=== PATIENT | female | born 1955 | race Caucasian/White ===

== ENCOUNTER 2017-10-22 11:45 | Outpatient (CLI) | payer OTHER | END 2017-10-22 11:46 | disposition home or self-care (01) | LOC: FCC-LAB 11:45 | PROVIDERS: ATTEND Family Medicine | DX: E03.9 Hypothyroidism, unspecified (principal) | CPT/HCPCS: 36415; 84439; 84443 ==

== ENCOUNTER 2017-12-23 16:04 | Outpatient (CLI) | END 2017-12-23 16:05 | disposition home or self-care (01) | LOC: FCC-LAB 16:04 | PROVIDERS: ATTEND Family Medicine | DX: M10.9 Gout, unspecified (principal) | CPT/HCPCS: 36415; 80053; 84550 ==

== ENCOUNTER 2018-04-06 13:14 | Outpatient (CLI) | END 2018-04-06 13:15 | disposition home or self-care (01) | LOC: RHC-LAB 13:14 | PROVIDERS: ATTEND Family Medicine | DX: E79.0 Hyperuricemia without signs of inflammatory arthritis and tophaceous disease (principal); E03.9 Hypothyroidism, unspecified; E11.9 Type 2 diabetes mellitus without complications; E78.5 Hyperlipidemia, unspecified | CPT/HCPCS: 36415; 80053; 80061; 82043; 83037; 84443; 84550 ==

== ENCOUNTER 2018-04-15 12:12 | Outpatient (CLI) | END 2018-04-15 12:13 | disposition home or self-care (01) | LOC: FCC-LAB 12:12 | PROVIDERS: ATTEND Family Medicine | DX: E11.9 Type 2 diabetes mellitus without complications (principal) | CPT/HCPCS: 36415; 83037 ==

== ENCOUNTER 2022-07-17 14:58 | Inpatient (IN) ==
--- NOTE | 2022-07-17 15:01 | ED.PDOC ---
General ED Provider: Dr. NANO PONCE MD Chief Complaint: Respiratory Complaint Stated Complaint: Patient presents with fever, nonproductive cough, right sided chest pain, dyspnea and body aches that had onset 12 hours ago. She has also had several episodes of nausea and emesis. Time Seen by Provider: 07/17/22 15:00 Primary Care Provider: DIOR CARRENO MD Nursing and Triage Documentation Reviewed and Agree: Yes Does patient meet sepsis criteria?: No System Inflammatory Response Syndrome: Temp 101F or Greater and Pulse >90 BPM Sepsis Protocol: For patient's 13 years and over: Temp is 96.8 and below OR 101 and greater Pulse >90 BPM Resp >20/minute Acutely Altered Mental Status Are patient's symptoms suggestive of a new infection, such as: -Pneumonia -Skin, Soft Tissue -Endocarditis -UTI -Bone, Joint Infection -Implantable Device -Acute Abdominal Infection -Wound Infection -Meningitis -Blood Stream Catheter Infection -Unknown Review of Systems Review Of Systems Constitutional: Reports Chills, Fever and Malaise Eyes: Reports No symptoms Ears, Nose, Mouth, Throat: Reports No symptoms Respiratory: Reports Cough and Short of air Cardiac: Reports No symptoms GI: Reports Nausea and Vomiting : Reports No symptoms Musculoskeletal: Reports Muscle pain Skin: Reports No symptoms Neurological: Reports No symptoms Endocrine: Reports No symptoms Hematologic/Lymphatic: Reports No symptoms All Other Systems: Reviewed and Negative [facility] Medical History Anxiety Asthma Carpal tunnel syndrome on both sides Chronic lower back pain Depression Esophageal spasm (03/04/16) Gastroesophageal reflux disease Hyperlipidemia Hypertension Hypothyroidism Irritable bowel syndrome (06/23/17) Lupus (systemic lupus erythematosus) Medicare annual wellness visit, subsequent (03/11/17) Melanoma Non-insulin dependent type 2 diabetes mellitus (03/04/16) Pernicious anemia (03/04/16) Rotator cuff arthropathy of right shoulder SCC (squamous cell carcinoma) (11/04/17) Shingles Skin cancer Suicide attempt Family History Mother Anemia Autoimmune disorder FATHER RA (rheumatoid arthritis) Maternal gr father Cancer of unknown origin Social History Smoking and tobacco status: Never smoker Second hand smoke exposure: No Alcohol intake: never Substance use type: does not use Freida/church: [employer] Special freida needs: No Agree to transfusion: Yes Adopted: No Caregiver/support person: No Foster care: No Household members: spouse Housing: house Lives independently: Yes Daycare: no daycare Number of children: 1 Number of grandchildren: 4 Highest education level completed: Associate degree: academic program Financial difficulty paying for basics: not very hard service: No skilled nursing: No Current occupational status: disabled Current occupational exposures/hazards: No Pets and animals: Yes Leisure activites: art History of recent travel: Yes Do you think of yourself as: straight/heterosexual Current gender identity: female Seatbelt use: always Helmet use: No Drives intoxicated or rides with intoxicated front end loader driver: No Water heater temperature set < 120 degrees: Yes Working smoke detector in home: Yes Fire extinguisher in home: Yes Carbon monoxide detector in home: Yes Firearms in home: Yes Firearms unloaded and locked: Yes Surgical History (05/30/17) (03/04/16) (04/19/18) (04/03/17) Colonoscopic polypectomy (05/30/17) H/O melanoma excision History of breast biopsy History of section History of musculoskeletal system surgery History of orthopedic surgery History of spinal surgery History of tubal ligation Status post cholecystectomy Status post hysterectomy Female Reproductive History Menstrual Hx Hysterectomy: Yes Hx Tubal Ligation: Yes Physical Exam Physical Exam Appearance: Reports Ill-appearing, No pain distress, Well-nourished and Other (Patient alert, oriented and in NAD. No respiratory distress.) Ill-appearing: Moderate Pain Distress: None Eyes: Reports Not Examined ENT: Reports Nose normal and Oropharynx normal Neck: Supple Respiratory: Reports Airway patent, Breath sounds clear and Breath sounds equal Cardiovascular: Reports RRR, No rub and No murmur GI/: Reports Soft, Nontender, No masses and Bowel sounds normal Musculoskeletal: Reports Normal strength, ROM intact and No edema Skin: Reports Warm and Dry Neurological: Reports Motor intact, Alert and Oriented Psychiatric: Reports Affect appropriate and Mood appropriate Interpretation Radiology Interpretation Radiology Interpretation By: Radiologist Exam Interpreted: Portable CXR (RLL infiltrate compatible with pneumonia) Re-Evaluation Re-Evaluation Time of Re-Evaluation: 16:26 Status: Unchanged Vital Signs Stable: Yes (oxygen sat 92-93% on RA) Appearance: NAD Physician Notification Case Discussed Physician Notified: Dr Carreno Time of Notification: 16:28 Comments: Patient to be admitted for IV antibiotic therapy and pulmonary therapy. Critical Care Note Critical Care Note Total Critical Care Time (mins): 0 Course Course Hematology/Chemistry: 07/17/22 15:38 07/17/22 15:38 Orders, Labs, Meds: Lab Review 07/17/22 07/17/22 07/17/22 15:38 15:38 15:38 WBC 21.75 H RBC 4.47 Hgb 13.5 Hct 41.3 MCV 92.4 MCH 30.2 MCHC 32.7 RDW Coeff of Niki 12.4 Plt Count 210 Immature Gran % (Auto) 0.5 Neut % (Auto) 82.2 H Lymph % (Auto) 7.4 L [place] % (Auto) 8.7 Eos % (Auto) 0.8 Baso % (Auto) 0.4 Neut # (Auto) 17.9 H Lymph # (Auto) 1.6 [place] # (Auto) 1.9 Eos # (Auto) 0.2 Baso # (Auto) 0.1 Immature Gran # (Auto) 0.1 Sodium 137.1 Potassium 4.69 Chloride 99.8 Carbon Dioxide 30.3 H Anion Gap 11.69 BUN 25.5 H Creatinine 1.27 Estimated GFR (MDRD) 42.00 BUN/Creatinine Ratio 20.07 Glucose 155.3 H Lactic Acid 1.65 Calcium 8.09 L Total Bilirubin 1.16 AST 26.5 ALT 14.0 Alkaline Phosphatase 110.1 Total Protein 6.96 Albumin 4.22 Globulin 2.74 Albumin/Globulin Ratio 1.54 Influ A Molecular Assay Influ B Molecular Assay SARS CoV-2 RNA Rapid LONNY 07/17/22 07/17/22 15:42 15:42 WBC RBC Hgb Hct MCV MCH MCHC RDW Coeff of Niki Plt Count Immature Gran % (Auto) Neut % (Auto) Lymph % (Auto) [place] % (Auto) Eos % (Auto) Baso % (Auto) Neut # (Auto) Lymph # (Auto) [place] # (Auto) Eos # (Auto) Baso # (Auto) Immature Gran # (Auto) Sodium Potassium Chloride Carbon Dioxide Anion Gap BUN Creatinine Estimated GFR (MDRD) BUN/Creatinine Ratio Glucose Lactic Acid Calcium Total Bilirubin AST ALT Alkaline Phosphatase Total Protein Albumin Globulin Albumin/Globulin Ratio Influ A Molecular Assay Negative by naat Influ B Molecular Assay Negative by naat SARS CoV-2 RNA Rapid LONNY Negative Orders Category Date Time Status NEBULIZER TREATMENT Stat CARDIO 07/17/22 15:45 Ordered Saline Lock [ED IV/MEDIPORT/POWERPORT] .ONCE EMERGENCY 07/17/22 15:20 Active BLOOD CULTURE (ED ONLY) Stat LAB 07/17/22 15:38 Received CBC W/ AUTO DIFF Stat LAB 07/17/22 15:38 Completed CMP [COMPREHENSIVE METABOLIC PANEL] Stat LAB 07/17/22 15:38 Completed COVID [SARS COV-2 RNA RAPID LONNY] Stat LAB 07/17/22 15:42 Completed FLU A & B MOLECULAR [FLU A/B MOLECULAR] Stat LAB 07/17/22 15:42 Completed LACTIC ACID Stat LAB 07/17/22 15:38 Completed 0.9 % Sodium Chloride [Saline Flush] MEDS 07/17/22 15:20 Active 1 syr IVF PRN PRN Azithromycin Inj [Zithromax] 500 mg MEDS 07/17/22 15:36 Active 0.9 % Sodium Chloride [Sodium Chloride] 250 ml IV ONCE Ceftriaxone Sodium [Rocephin 2 gm Vial] 2 gm MEDS 07/17/22 15:22 Discontinued 0.9 % Sodium Chloride [Sodium Chloride 100Ml] 100 ml IV ONCE Ipratropium/Albuterol Neb [Duoneb] MEDS 07/17/22 15:45 Discontinued 3 ml NEB ONCE STA Ketorolac Tromethamine [Toradol] MEDS 07/17/22 15:20 Discontinued 30 mg IVP ONCE STA Prochlorperazine Edisylate [Compazine] MEDS 07/17/22 15:59 Discontinued 10 mg IVP ONCE STA Sodium Chloride 0.9% [Sodium Chloride] 1,000 ml MEDS 07/17/22 15:22 Discontinued IV BOLUS CXR [CHEST, 1V AP ONLY] Stat RADS 07/17/22 15:11 Completed Medications Generic Name Dose Route Start Last Admin Trade Name Freq PRN Reason Stop Dose Admin Azithromycin 500 mg/ Sodium 250 mls @ 125 mls/hr 07/17/22 15:36 07/17/22 16:04 Chloride IV 07/17/22 17:35 125 mls/hr ONCE STA Administration Sodium Chloride 1 syr 07/17/22 15:20 07/17/22 16:12 0.9% Sodium Chloride 10 Ml Disp.Syrin IVF 1 syr PRN PRN Administration To flush IV Discontinued Medications Generic Name Dose Route Start Last Admin Trade Name Freq PRN Reason Stop Dose Admin Albuterol/Ipratropium 3 ml 07/17/22 15:45 Ipratropium/Albuterol Vial.Neb NEB 07/17/22 15:46 ONCE STA Sodium Chloride 1,000 mls @ 1,000 mls/hr 07/17/22 15:22 07/17/22 16:04 Sodium Chloride IV 07/17/22 16:21 1,000 mls/hr BOLUS STA Administration Ceftriaxone Sodium 2 gm/ 100 mls @ 100 mls/hr 07/17/22 15:22 Sodium Chloride IV 07/17/22 16:21 ONCE ONE Ketorolac Tromethamine 30 mg 07/17/22 15:20 07/17/22 16:11 Ketorolac Tromethamine 30 Mg/Ml Vial IVP 07/17/22 15:21 30 mg ONCE STA Administration Prochlorperazine Edisylate 10 mg 07/17/22 15:59 07/17/22 16:06 Prochlorperazine Edisylate 10 Mg/2 Ml Sdv IVP 07/17/22 16:00 10 mg ONCE STA Administration Vital Signs: Temp Pulse Resp BP Pulse Ox 07/17/22 15:00 101.3 F H 102 H 20 107/72 92 L Discharge Plan Discharge Patient Disposition: ADMITTED INPATIENT Discharge Problem: Pneumonia, Essential hypertension, Type 2 diabetes mellitus with hemoglobin A1c goal of less than 7.0% Did you review [place] [employer] [employer] for ALL controlled substances?: Not Applicable ED Provider: NANO PONCE Condition: Fair Physician Progress Note: []
[2022-07-17] MEDS ORDERED: TORADOL IVP STA (15:20)
[2022-07-17] MEDS ORDERED: ROCEPHIN 2 GM VIAL 2 GM in SODIUM CHLORIDE 100ML 100 ML IV ONE (15:22)
[2022-07-17] MEDS ORDERED: SODIUM CHLORIDE 1,000 ML IV STA (15:22)
--- NOTE | 2022-07-17 15:30 | DI ---
EXAM: CHEST ONE-VIEW HISTORY: Right chest pain COMPARISON: [facility] FINDINGS: Air space filling infiltrates present right lung base. This is consistent with pneumonia. The left lung is clear. Cardiac silhouette is normal. Dorsal column stimulator is present. IMPRESSION: Right basilar infiltrate consistent with pneumonia
[2022-07-17] MEDS ORDERED: ZITHROMAX 500 MG in SODIUM CHLORIDE 250 ML IV STA (15:36)
[2022-07-17 15:44] LABS: BASOPHILS # (AUTO) 0.1 K/uL (0-0.2); BASOPHILS % (AUTO) 0.4 % (0.0-3.0); EOSINOPHILS # (AUTO) 0.2 K/ul (0.0-0.7); EOSINOPHILS % (AUTO) 0.8 % (0.0-7.0); HEMATOCRIT 41.3 % (37.0-47.0); HEMOGLOBIN 13.5 g/dl (12.0-16.0); IMMATURE GRANULOCYTE # (AUTO) 0.1 (0.0-1.0); IMMATURE GRANULOCYTE % (AUTO) 0.5 % (0.0-5.0); LYMPHOCYTES # (AUTO) 1.6 K/uL (0.60-3.4); LYMPHOCYTES % (AUTO) 7.4 (10.0-50.0); MEAN CORPUSCULAR HEMOGLOBIN 30.2 pg (27.0-31.0); MEAN CORPUSCULAR HGB CONC 32.7 (31.8-35.4); MEAN CORPUSCULAR VOLUME 92.4 fl (81.0-99.0); MONOCYTES # (AUTO) 1.9 K/uL (0.4-2.0); MONOCYTES % (AUTO) 8.7 (0-10); NEUTROPHILS # (AUTO) 17.9 K/ul (2.0-6.9); NEUTROPHILS % (AUTO) 82.2 % (42.2-75.2); PLATELET COUNT 210 10^3/uL (140-440); RDW COEFFICIENT OF VARIATION 12.4 % (11.6-14.8); RED BLOOD COUNT 4.47 10^6/ul (4.20-5.40); WHITE BLOOD COUNT 21.75 K/ul (4.6-10.2)
[2022-07-17] MEDS ORDERED: DUONEB NEB STA (15:45)
[2022-07-17 15:56] LABS: ALBUMIN 4.22 g/dL (3.5-5.0); ALKALINE PHOSPHATASE 110.1 U/L (53-141); ASPARTATE AMINO TRANSFERASE 26.5 U/L (14-36); BILIRUBIN,TOTAL 1.16 mg/dL (0.2-1.3); BLOOD UREA NITROGEN 25.5 mg/dL (7-17); CALCIUM 8.09 mg/dL (8.4-10.2); CARBON DIOXIDE 30.3 mmol/L (22-30.0); CHLORIDE 99.8 mmol/L (98-107); CREATININE 1.27 mg/dL (0.60-1.30); GLUCOSE 155.3 mg/dL (74-106); POTASSIUM 4.69 mmol/L (3.5-5.1); SODIUM 137.1 mmol/L (134.5-145); TOTAL PROTEIN 6.96 g/dL (6.3-8.2)
[2022-07-17] MEDS ORDERED: COMPAZINE IVP STA (15:59)
[2022-07-17 16:06] LABS: MOLECULAR FLU A NEGATIVE BY NAAT (NEGATIVE); MOLECULAR FLU B NEGATIVE BY NAAT (NEGATIVE)
[2022-07-17 16:22] LABS: SARS COV-2 RNA RAPID NAAT NEGATIVE (NEGATIVE)
[2022-07-17] MEDS ORDERED: TYLENOL PO PRN (16:59)
--- NOTE | 2022-07-17 16:59 | PCM ---
Chief Complaint Chief Complaint: cough chest pain dyspnea History of Present Illness History of Present Illness: Patient presents with fever to 101.8, cough, right sided chest pain and dyspnea for the past 12 hours. CXR showed right basilar infiltrate consistent with pneumonia. She also had decreased oxygen saturation in the ED that required supplemental oxygen. Review of Systems Constitutional: Reports Fever Eyes: Reports No symptoms Ears: Reports No symptoms Nose: Reports No symptoms Throat: Reports No symptoms Mouth: Reports No symptoms Respiratory: Reports Cough, Shortness of air and Other (right sided chest pain) Cardiovascular: Reports No symptoms Gastrointestinal: Reports Nausea Genitourinary: Reports No symptoms Neurological: Reports No symptoms Musculoskeletal: Reports No symptoms Skin: Reports No symptoms Immunology: Reports No symptoms Hematology: Reports No symptoms Psychiatric: Reports No symptoms Habits: Reports Tobacco use Allergies Allergies Allergy/AdvReac Type Severity Reaction Status Date / Time clindamycin AdvReac Severe Anaphylaxis Verified 07/17/22 15:06 colchicine AdvReac Severe Vomiting Verified 07/17/22 15:06 etodolac AdvReac Intermediate Abdominal Verified 07/17/22 15:06 Pain amlodipine [From Norvasc] AdvReac Swelling Verified 07/17/22 15:06 fenofibrate AdvReac Unknown Verified 07/17/22 15:06 Penicillins AdvReac Unknown Verified 07/17/22 15:06 [id number] Reductase AdvReac Swelling Verified 07/17/22 15:06 Inhibitor PFSH Medical History Anxiety Asthma Carpal tunnel syndrome on both sides Chronic lower back pain Depression Esophageal spasm (03/04/16) Gastroesophageal reflux disease Hyperlipidemia Hypertension Hypothyroidism Irritable bowel syndrome (06/23/17) Lupus (systemic lupus erythematosus) Medicare annual wellness visit, subsequent (03/11/17) Melanoma Non-insulin dependent type 2 diabetes mellitus (03/04/16) Pernicious anemia (03/04/16) Rotator cuff arthropathy of right shoulder SCC (squamous cell carcinoma) (11/04/17) Shingles Skin cancer Suicide attempt Surgical History (05/30/17) (03/04/16) (04/19/18) (04/03/17) Colonoscopic polypectomy (05/30/17) H/O melanoma excision History of breast biopsy History of section History of musculoskeletal system surgery History of orthopedic surgery History of spinal surgery History of tubal ligation Status post cholecystectomy Status post hysterectomy Family History Mother Anemia Autoimmune disorder FATHER RA (rheumatoid arthritis) Maternal gr father Cancer of unknown origin Social History Smoking and tobacco status: Never smoker Second hand smoke exposure: No Alcohol intake: never Substance use type: does not use Freida/bahai: [employer] Special freida needs: No Agree to transfusion: Yes Adopted: No Caregiver/support person: No Foster care: No Household members: spouse Housing: house Lives independently: Yes Daycare: no daycare Number of children: 1 Number of grandchildren: 4 Highest education level completed: Associate degree: academic program Financial difficulty paying for basics: not very hard service: No [facility]: No Current occupational status: disabled Current occupational exposures/hazards: No Pets and animals: Yes Leisure activites: art History of recent travel: Yes Do you think of yourself as: straight/heterosexual Current gender identity: female Seatbelt use: always Helmet use: No Drives intoxicated or rides with intoxicated limb driver: No Water heater temperature set < 120 degrees: Yes Working smoke detector in home: Yes Fire extinguisher in home: Yes Carbon monoxide detector in home: Yes Firearms in home: Yes Firearms unloaded and locked: Yes Medications Medications: Medications Generic Name Dose Route Start Last Admin Trade Name Freq PRN Reason Stop Dose Admin Azithromycin 500 mg/ Sodium 250 mls @ 125 mls/hr 07/17/22 15:36 07/17/22 16:04 Chloride IV 07/17/22 17:35 125 mls/hr ONCE STA Administration Sodium Chloride 1 syr 07/17/22 15:20 07/17/22 16:12 0.9% Sodium Chloride 10 Ml Disp.Syrin IVF 1 syr PRN PRN Administration To flush IV Body Composition Height: 5 ft 2 in Weight: 76.929 kg Body Mass Index (BMI): 31.0 Vital Signs Temperature: 101.3 F Pulse Rate: 102 Respiratory Rate: 20 Blood Pressure: 107/72 O2 Sat by Pulse Oximetry: 92 Physical Examination Appearance: Reports Ill-appearing, No pain distress, Well-nourished and Other (Patient alert, oriented and in NAD. No respiratory distress.) Ill-appearing: Moderate Pain Distress: None Eyes: Reports IRMA and EOMI ENT: Reports Nose normal and Oropharynx normal Neck: Supple Respiratory: Reports Airway patent, Breath sounds equal, Respirations nonlabored and Crackles (right base) Cardiovascular: Reports RRR, No rub and No murmur GI/: Reports Soft, Nontender, No masses and Bowel sounds normal Musculoskeletal: Reports Normal strength, ROM intact and No edema Skin: Reports Warm, Dry and Normal color Neurological: Reports Motor intact, Alert and Oriented Psychiatric: Reports Affect appropriate and Mood appropriate Lab/Tests/Diagnostic Imaging Lab/Tests/Diagnostic Imaging: Lab Review 07/17/22 07/17/22 07/17/22 15:38 15:38 15:38 WBC 21.75 H RBC 4.47 Hgb 13.5 Hct 41.3 MCV 92.4 MCH 30.2 MCHC 32.7 RDW Coeff of Niki 12.4 Plt Count 210 Immature Gran % (Auto) 0.5 Neut % (Auto) 82.2 H Lymph % (Auto) 7.4 L [place] % (Auto) 8.7 Eos % (Auto) 0.8 Baso % (Auto) 0.4 Neut # (Auto) 17.9 H Lymph # (Auto) 1.6 [place] # (Auto) 1.9 Eos # (Auto) 0.2 Baso # (Auto) 0.1 Immature Gran # (Auto) 0.1 Sodium 137.1 Potassium 4.69 Chloride 99.8 Carbon Dioxide 30.3 H Anion Gap 11.69 BUN 25.5 H Creatinine 1.27 Estimated GFR (MDRD) 42.00 BUN/Creatinine Ratio 20.07 Glucose 155.3 H Lactic Acid 1.65 Calcium 8.09 L Total Bilirubin 1.16 AST 26.5 ALT 14.0 Alkaline Phosphatase 110.1 Total Protein 6.96 Albumin 4.22 Globulin 2.74 Albumin/Globulin Ratio 1.54 Influ A Molecular Assay Influ B Molecular Assay SARS CoV-2 RNA Rapid LONNY 07/17/22 07/17/22 15:42 15:42 WBC RBC Hgb Hct MCV MCH MCHC RDW Coeff of Niki Plt Count Immature Gran % (Auto) Neut % (Auto) Lymph % (Auto) [place] % (Auto) Eos % (Auto) Baso % (Auto) Neut # (Auto) Lymph # (Auto) [place] # (Auto) Eos # (Auto) Baso # (Auto) Immature Gran # (Auto) Sodium Potassium Chloride Carbon Dioxide Anion Gap BUN Creatinine Estimated GFR (MDRD) BUN/Creatinine Ratio Glucose Lactic Acid Calcium Total Bilirubin AST ALT Alkaline Phosphatase Total Protein Albumin Globulin Albumin/Globulin Ratio Influ A Molecular Assay Negative by naat Influ B Molecular Assay Negative by naat SARS CoV-2 RNA Rapid LONNY Negative Orders Category Date Time Status NEBULIZER TREATMENT Stat CARDIO 07/17/22 15:45 Completed Saline Lock [ED IV/MEDIPORT/POWERPORT] .ONCE EMERGENCY 07/17/22 15:20 Active BLOOD CULTURE (ED ONLY) Stat LAB 07/17/22 15:38 Received CBC W/ AUTO DIFF Stat LAB 07/17/22 15:38 Completed CMP [COMPREHENSIVE METABOLIC PANEL] Stat LAB 07/17/22 15:38 Completed COVID [SARS COV-2 RNA RAPID LONNY] Stat LAB 07/17/22 15:42 Completed FLU A & B MOLECULAR [FLU A/B MOLECULAR] Stat LAB 07/17/22 15:42 Completed LACTIC ACID Stat LAB 07/17/22 15:38 Completed 0.9 % Sodium Chloride [Saline Flush] MEDS 07/17/22 15:20 Active 1 syr IVF PRN PRN Azithromycin Inj [Zithromax] 500 mg MEDS 07/17/22 15:36 Active 0.9 % Sodium Chloride [Sodium Chloride] 250 ml IV ONCE Ceftriaxone Sodium [Rocephin 2 gm Vial] 2 gm MEDS 07/17/22 15:22 Discontinued 0.9 % Sodium Chloride [Sodium Chloride 100Ml] 100 ml IV ONCE Ipratropium/Albuterol Neb [Duoneb] MEDS 07/17/22 15:45 Discontinued 3 ml NEB ONCE STA Ketorolac Tromethamine [Toradol] MEDS 07/17/22 15:20 Discontinued 30 mg IVP ONCE STA Prochlorperazine Edisylate [Compazine] MEDS 07/17/22 15:59 Discontinued 10 mg IVP ONCE STA Sodium Chloride 0.9% [Sodium Chloride] 1,000 ml MEDS 07/17/22 15:22 Discont inued IV BOLUS CXR [CHEST, 1V AP ONLY] Stat RADS 07/17/22 15:11 Completed Medications Generic Name Dose Route Start Last Admin Trade Name Freq PRN Reason Stop Dose Admin Azithromycin 500 mg/ Sodium 250 mls @ 125 mls/hr 07/17/22 15:36 07/17/22 16:04 Chloride IV 07/17/22 17:35 125 mls/hr ONCE STA Administration Sodium Chloride 1 syr 07/17/22 15:20 07/17/22 16:12 0.9% Sodium Chloride 10 Ml Disp.Syrin IVF 1 syr PRN PRN Administration To flush IV Discontinued Medications Generic Name Dose Route Start Last Admin Trade Name Michael PRN Reason Stop Dose Admin Albuterol/Ipratropium 3 ml 07/17/22 15:45 07/17/22 16:20 Ipratropium/Albuterol Vial.Neb NEB 07/17/22 15:46 3 ml ONCE STA Administration Sodium Chloride 1,000 mls @ 1,000 mls/hr 07/17/22 15:22 07/17/22 16:04 Sodium Chloride IV 07/17/22 16:21 1,000 mls/hr BOLUS STA Administration Ceftriaxone Sodium 2 gm/ 100 mls @ 100 mls/hr 07/17/22 15:22 Sodium Chloride IV 07/17/22 16:21 ONCE ONE Ketorolac Tromethamine 30 mg 07/17/22 15:20 07/17/22 16:11 Ketorolac Tromethamine 30 Mg/Ml Vial IVP 07/17/22 15:21 30 mg ONCE STA Administration Prochlorperazine Edisylate 10 mg 07/17/22 15:59 07/17/22 16:06 Prochlorperazine Edisylate 10 Mg/2 Ml Sdv IVP 07/17/22 16:00 10 mg ONCE STA Administration Assessment (1) Pneumonia: Status: Acute Code(s): J18.9 - Pneumonia, unspecified organism SNOMED Code(s): 356378377 (2) Type 2 diabetes mellitus with hemoglobin A1c goal of less than 7.0%: Status: Acute Code(s): E11.9 - Type 2 diabetes mellitus without complications SNOMED Code(s): 35226263 (3) Hypoxia: Status: Acute Code(s): R09.02 - Hypoxemia SNOMED Code(s): 797890716 (4) Essential hypertension: Status: Acute Code(s): I10 - Essential (primary) hypertension SNOMED Code(s): 67611463 Plan Plan: Patient to be admitted for IV antibiotics and pulmonary therapy. Her antihypertensive meds will be continued as well as her DM meds. She will receive supplemental oxygen.
[2022-07-17] MEDS ORDERED: PHENERGAN TAB PO PRN (17:05)
[2022-07-17] MEDS ORDERED: FLEXERIL PO PRN (17:05)
[2022-07-17 17:33] VITALS: BMI 31.5
[2022-07-17] MEDS: DUONEB NEB SCH ×2 (17:41→23:30)
[2022-07-17] MEDS: LOVENOX SUBCUT SCH (17:54)
[2022-07-17] MEDS: SODIUM CHLORIDE 1,000 ML IV SCH (17:55)
[2022-07-17] MEDS: ZESTRIL PO SCH (20:56)
[2022-07-17] MEDS: KLONOPIN PO SCH (20:56)
[2022-07-17] MEDS: COGENTIN PO SCH (20:56)
[2022-07-17] MEDS: CATAPRES PO SCH (20:56)
[2022-07-17] MEDS: HUMULIN R SUBCUT PRN (20:57)
[2022-07-17] MEDS ORDERED: SEROQUEL PO SCH (21:21)
[2022-07-17] MEDS: SEROQUEL PO SCH (22:04)
[2022-07-18] MEDS: SODIUM CHLORIDE 1,000 ML IV SCH ×3 (01:08→23:56)
[2022-07-18] MEDS: DUONEB NEB SCH ×3 (04:50→19:30)
[2022-07-18] MEDS: LASIX TAB PO SCH (05:30)
[2022-07-18] MEDS: SYNTHROID PO SCH (05:30)
[2022-07-18] MEDS: PERCOCET 10-325 PO PRN ×2 (05:34→23:55)
[2022-07-18 05:38] LABS: BASOPHILS % (AUTO) 0.2 % (0.0-3.0); EOSINOPHILS % (AUTO) 0.3 % (0.0-7.0); HEMATOCRIT 32.6 % (37.0-47.0); HEMOGLOBIN 10.4 g/dl (12.0-16.0); IMMATURE GRANULOCYTE % (AUTO) 0.3 % (0.0-5.0); LYMPHOCYTES # (AUTO) 2.8 K/uL (0.60-3.4); LYMPHOCYTES % (AUTO) 20.3 (10.0-50.0); MEAN CORPUSCULAR HGB CONC 31.9 (31.8-35.4); MEAN CORPUSCULAR VOLUME 93.9 fl (81.0-99.0); MONOCYTES % (AUTO) 7.7 (0-10); NEUTROPHILS # (AUTO) 9.7 K/ul (2.0-6.9); NEUTROPHILS % (AUTO) 71.2 % (42.2-75.2); PLATELET COUNT 157 10^3/uL (140-440); RDW COEFFICIENT OF VARIATION 12.5 % (11.6-14.8); RED BLOOD COUNT 3.47 10^6/ul (4.20-5.40)
[2022-07-18 05:40] LABS: WHITE BLOOD COUNT 13.59 K/ul (4.6-10.2)
[2022-07-18 05:43] LABS: ALANINE AMINOTRANSFERASE 9.3 U/L (0-35); ALBUMIN 2.89 g/dL (3.5-5.0); ALKALINE PHOSPHATASE 80.3 U/L (53-141); ASPARTATE AMINO TRANSFERASE 15.9 U/L (14-36); BILIRUBIN,TOTAL 0.66 mg/dL (0.2-1.3); BLOOD UREA NITROGEN 30.9 mg/dL (7-17); CALCIUM 7.51 mg/dL (8.4-10.2); CARBON DIOXIDE 27.7 mmol/L (22-30.0); CHLORIDE 105.5 mmol/L (98-107); CREATININE 1.07 mg/dL (0.60-1.30); GLUCOSE 115.3 mg/dL (74-106); POTASSIUM 3.92 mmol/L (3.5-5.1); SODIUM 137.1 mmol/L (134.5-145); TOTAL PROTEIN 5.25 g/dL (6.3-8.2)
[2022-07-18] MEDS ORDERED: CLEOCIN 900 MG/50 ML D5W 900 MG/50 ML BAG IV SCH (08:40)
[2022-07-18] MEDS ORDERED: ROCEPHIN 1 GM/50 ML D5W 1 GM/50 ML BAG IV SCH (09:00)
[2022-07-18] MEDS ORDERED: FLAGYL 500 MG/100 ML 500 MG/100 ML BAG IV SCH (09:00)
[2022-07-18] MEDS ORDERED: ZITHROMAX 500 MG in SODIUM CHLORIDE 250 ML IV SCH (09:00)
[2022-07-18] MEDS: NEURONTIN PO SCH (09:10)
[2022-07-18] MEDS: COGENTIN PO SCH ×3 (09:10→20:22)
[2022-07-18] MEDS: CELEBREX PO SCH (09:10)
[2022-07-18] MEDS: KLONOPIN PO SCH ×3 (09:10→20:22)
[2022-07-18] MEDS: TOPROL XL PO SCH (09:11)
[2022-07-18] MEDS: CATAPRES PO SCH ×2 (09:11→20:22)
[2022-07-18] MEDS: ZESTRIL PO SCH ×2 (09:11→20:22)
[2022-07-18] MEDS: ZITHROMAX PO SCH (09:11)
[2022-07-18] MEDS: LOVENOX SUBCUT SCH (09:12)
[2022-07-18] MEDS: FLAGYL 500 MG/100 ML 500 MG/100 ML BAG IV SCH ×3 (09:18→20:22)
[2022-07-18] MEDS: ROCEPHIN 1 GM/50 ML D5W 1 GM/50 ML BAG IV SCH (10:33)
[2022-07-18] MEDS: HUMULIN R SUBCUT PRN ×2 (11:41→20:33)
[2022-07-18] MEDS: SEROQUEL PO SCH (20:22)
[2022-07-18] MEDS ORDERED: SEROQUEL PO SCH (21:00)
[2022-07-19] MEDS: DUONEB NEB SCH ×4 (04:40→19:25)
[2022-07-19 05:08] LABS: BASOPHILS % (AUTO) 0.5 % (0.0-3.0); EOSINOPHILS # (AUTO) 0.2 K/ul (0.0-0.7); EOSINOPHILS % (AUTO) 1.9 % (0.0-7.0); HEMATOCRIT 27.9 % (37.0-47.0); HEMOGLOBIN 9.3 g/dl (12.0-16.0); IMMATURE GRANULOCYTE % (AUTO) 0.1 % (0.0-5.0); LYMPHOCYTES # (AUTO) 1.9 K/uL (0.60-3.4); LYMPHOCYTES % (AUTO) 21.7 (10.0-50.0); MEAN CORPUSCULAR HEMOGLOBIN 30.5 pg (27.0-31.0); MEAN CORPUSCULAR HGB CONC 33.3 (31.8-35.4); MEAN CORPUSCULAR VOLUME 91.5 fl (81.0-99.0); MONOCYTES # (AUTO) 0.8 K/uL (0.4-2.0); MONOCYTES % (AUTO) 9.7 (0-10); NEUTROPHILS # (AUTO) 5.7 K/ul (2.0-6.9); NEUTROPHILS % (AUTO) 66.1 % (42.2-75.2); PLATELET COUNT 140 10^3/uL (140-440); RDW COEFFICIENT OF VARIATION 12.4 % (11.6-14.8); RED BLOOD COUNT 3.05 10^6/ul (4.20-5.40)
[2022-07-19 05:09] LABS: WHITE BLOOD COUNT 8.59 K/ul (4.6-10.2)
[2022-07-19 05:27] LABS: ALANINE AMINOTRANSFERASE 7.1 U/L (0-35); ALBUMIN 2.65 g/dL (3.5-5.0); ALKALINE PHOSPHATASE 80.4 U/L (53-141); ASPARTATE AMINO TRANSFERASE 10.3 U/L (14-36); BILIRUBIN,TOTAL 0.45 mg/dL (0.2-1.3); BLOOD UREA NITROGEN 26.3 mg/dL (7-17); CALCIUM 7.88 mg/dL (8.4-10.2); CARBON DIOXIDE 27.2 mmol/L (22-30.0); CHLORIDE 108.4 mmol/L (98-107); GLUCOSE 116.4 mg/dL (74-106); POTASSIUM 3.68 mmol/L (3.5-5.1); SODIUM 140.3 mmol/L (134.5-145); TOTAL PROTEIN 4.87 g/dL (6.3-8.2)
[2022-07-19] MEDS: FLAGYL 500 MG/100 ML 500 MG/100 ML BAG IV SCH ×3 (05:34→21:10)
[2022-07-19] MEDS: LASIX TAB PO SCH (05:34)
[2022-07-19] MEDS: SYNTHROID PO SCH (05:34)
[2022-07-19] MEDS: NEURONTIN PO SCH (08:16)
[2022-07-19] MEDS: COGENTIN PO SCH ×3 (08:16→21:10)
[2022-07-19] MEDS: KLONOPIN PO SCH ×3 (08:16→21:11)
[2022-07-19] MEDS: TOPROL XL PO SCH (08:16)
[2022-07-19] MEDS: CELEBREX PO SCH (08:16)
[2022-07-19] MEDS: ZITHROMAX PO SCH (08:17)
[2022-07-19] MEDS: CATAPRES PO SCH ×2 (08:17→21:11)
[2022-07-19] MEDS: PERCOCET 10-325 PO PRN ×2 (08:17→19:57)
[2022-07-19] MEDS: ZESTRIL PO SCH ×2 (08:17→21:10)
[2022-07-19] MEDS: LOVENOX SUBCUT SCH (08:18)
[2022-07-19] MEDS: ROCEPHIN 1 GM/50 ML D5W 1 GM/50 ML BAG IV SCH (08:18)
--- NOTE | 2022-07-19 08:20 | PCM.PROG ---
Date Seen by Provider: 07/18/22 Time Seen by Provider: 08:30 Subjective: Patient is a 66 year old female who was seen in the [facility] last night for elevated blood pressure and then diagnosed with right lower lobe pneumonia. She thinks that she aspirated after she vomited at home. has been having fever and chills with cough. Objective: Vitals: T=96.9 F, P=79, R=18, HR=257/71, SPO2=97 HEENT: [Mucus membranes moist ] Neck: [Supple] Lungs: [ Bibasilar Rhonchi worse on the right] CVS: [Regular s1 and s2 ] Abdomen: [obese soft non tender] Extremities: [no edema ] Neurological: [Awake and alert oriented x 3 no focal defictes noted. ] Skin: [no skin rash ] Lab/Tests/Diagnostic Imaging: [WBC 13] (1) Pneumonia: Status: Acute Code(s): J18.9 - Pneumonia, unspecified organism SNOMED Code(s): 901710357 Assessment: Aspiration pneumonia with right sided infiltrate after vomiting. Decreased dose of Rocephin to 1 gram and add Flagyl 500mg q8 hours, change Zithromax to po (2) Type 2 diabetes mellitus with hemoglobin A1c goal of less than 7.0%: Status: Acute Code(s): E11.9 - Type 2 diabetes mellitus without complications SNOMED Code(s): 52847281 Assessment: Blood glucose well controlled continue current medications (3) Hypoxia: Status: Acute Code(s): R09.02 - Hypoxemia SNOMED Code(s): 349936770 Assessment: Due to Pneumonia On supplemental oxygen (4) Essential hypertension: Status: Acute Code(s): I10 - Essential (primary) hypertension SNOMED Code(s): 04413314 Assessment: Blood pressure controlled on current medications Plan: As above. Will also order labs for AM
--- NOTE | 2022-07-19 09:04 | PCM.PROG ---
Date Seen by Provider: 07/19/22 Time Seen by Provider: 08:45 Subjective: Still requiring supplemental oxygen. Feeling a bit better. Objective: Vitals: T=96.9 F, P=79, R=18, LU=967/71, SPO2=97 Alert and appears comfortable. No respiratory distress. HEENT: [] Oral mucosa moist. Neck: [] Lungs: [] Clear. BS equal. CVS: [] RRR Abdomen: [] Extremities: [] Neurological: [] Skin: [] Lab/Tests/Diagnostic Imaging: [] (1) Pneumonia: Status: Acute Code(s): J18.9 - Pneumonia, unspecified organism SNOMED Code(s): 329135740 Assessment: Improved a bit. WBC decreased. (2) Type 2 diabetes mellitus with hemoglobin A1c goal of less than 7.0%: Status: Acute Code(s): E11.9 - Type 2 diabetes mellitus without complications SNOMED Code(s): 06311586 (3) Hypoxia: Status: Acute Code(s): R09.02 - Hypoxemia SNOMED Code(s): 966972672 Assessment: Still requiring supplemental oxygen. (4) Essential hypertension: Status: Acute Code(s): I10 - Essential (primary) hypertension SNOMED Code(s): 44885820 Plan: Still somewhat dehydrated. Continue IV fluids and encourage PO intake. Repeat CXR.
[2022-07-19] MEDS: SODIUM CHLORIDE 1,000 ML IV SCH ×2 (11:24→21:09)
--- NOTE | 2022-07-19 11:41 | DI ---
EXAM: CHEST, ONE VIEW HISTORY: Pneumonia COMPARISON: 07/17/2022 TECHNIQUE: Single view chest was performed. FINDINGS: Heart is enlarged. Mediastinal contour unchanged. No visible pneumothorax. No large ple ural effusion. Right basilar infiltrate. Possible left basilar infiltrate. Spinal stimulator. IMPERSSION: Right basilar infiltrate, suspicious for pneumonia. Possible left basilar pneumonia. R ecommend radiographic follow-up.
[2022-07-19] MEDS: HUMULIN R SUBCUT PRN ×2 (12:15→21:11)
[2022-07-19] MEDS: SEROQUEL PO SCH (21:11)
[2022-07-20] MEDS: DUONEB NEB SCH ×4 (05:08→19:20)
[2022-07-20] MEDS: LASIX TAB PO SCH (05:33)
[2022-07-20] MEDS: SYNTHROID PO SCH (05:33)
[2022-07-20] MEDS: SODIUM CHLORIDE 1,000 ML IV SCH (05:33)
[2022-07-20] MEDS: FLAGYL 500 MG/100 ML 500 MG/100 ML BAG IV SCH ×3 (05:33→21:25)
[2022-07-20 05:35] LABS: BASOPHILS % (AUTO) 0.3 % (0.0-3.0); EOSINOPHILS # (AUTO) 0.2 K/ul (0.0-0.7); EOSINOPHILS % (AUTO) 3.3 % (0.0-7.0); HEMATOCRIT 30.1 % (37.0-47.0); HEMOGLOBIN 9.7 g/dl (12.0-16.0); IMMATURE GRANULOCYTE % (AUTO) 0.3 % (0.0-5.0); LYMPHOCYTES # (AUTO) 1.9 K/uL (0.60-3.4); LYMPHOCYTES % (AUTO) 30.3 (10.0-50.0); MEAN CORPUSCULAR HEMOGLOBIN 30.2 pg (27.0-31.0); MEAN CORPUSCULAR HGB CONC 32.2 (31.8-35.4); MEAN CORPUSCULAR VOLUME 93.8 fl (81.0-99.0); MONOCYTES # (AUTO) 0.7 K/uL (0.4-2.0); MONOCYTES % (AUTO) 10.9 (0-10); NEUTROPHILS # (AUTO) 3.4 K/ul (2.0-6.9); NEUTROPHILS % (AUTO) 54.9 % (42.2-75.2); PLATELET COUNT 131 10^3/uL (140-440); RDW COEFFICIENT OF VARIATION 12.1 % (11.6-14.8); RED BLOOD COUNT 3.21 10^6/ul (4.20-5.40); WHITE BLOOD COUNT 6.14 K/ul (4.6-10.2)
[2022-07-20 05:47] LABS: ALANINE AMINOTRANSFERASE 6.7 U/L (0-35); ALBUMIN 2.97 g/dL (3.5-5.0); ALKALINE PHOSPHATASE 80.7 U/L (53-141); ASPARTATE AMINO TRANSFERASE 9.9 U/L (14-36); BILIRUBIN,TOTAL 0.36 mg/dL (0.2-1.3); BLOOD UREA NITROGEN 15.2 mg/dL (7-17); CALCIUM 7.97 mg/dL (8.4-10.2); CARBON DIOXIDE 28.8 mmol/L (22-30.0); CHLORIDE 109.9 mmol/L (98-107); CREATININE 0.89 mg/dL (0.60-1.30); GLUCOSE 106.6 mg/dL (74-106); POTASSIUM 3.26 mmol/L (3.5-5.1); SODIUM 141.8 mmol/L (134.5-145); TOTAL PROTEIN 5.53 g/dL (6.3-8.2)
[2022-07-20] MEDS: HUMULIN R SUBCUT PRN ×3 (06:17→17:15)
[2022-07-20] MEDS: ZITHROMAX PO SCH (08:28)
[2022-07-20] MEDS: COGENTIN PO SCH ×3 (08:28→21:26)
[2022-07-20] MEDS: ROCEPHIN 1 GM/50 ML D5W 1 GM/50 ML BAG IV SCH (08:28)
[2022-07-20] MEDS: KLONOPIN PO SCH ×3 (08:28→21:26)
[2022-07-20] MEDS: CELEBREX PO SCH (08:29)
[2022-07-20] MEDS: NEURONTIN PO SCH (08:29)
[2022-07-20] MEDS: CATAPRES PO SCH ×2 (08:29→21:27)
[2022-07-20] MEDS: ZESTRIL PO SCH ×2 (08:29→21:26)
[2022-07-20] MEDS: TOPROL XL PO SCH (08:29)
[2022-07-20] MEDS: LOVENOX SUBCUT SCH (08:30)
[2022-07-20] MEDS: PERCOCET 10-325 PO PRN ×2 (08:37→17:47)
[2022-07-20] MEDS ORDERED: K-DUR PO STA (09:51)
--- NOTE | 2022-07-20 09:54 | PCM.PROG ---
Date Seen by Provider: 07/20/22 Time Seen by Provider: 09:52 Subjective: i had chills this am--no nursing staff concerns voiced Objective: Vitals: T=98.6 F, P=83, R=16, HN=468/84, SPO2=98 HEENT: [] Neck: [supple] Lungs: [scattered rhonchi] CVS: [rrr] Abdomen: [soft nt] Extremities: [] Neurological: [intact] Skin: [] Lab/Tests/Diagnostic Imaging: [] (1) Pneumonia: Status: Acute Code(s): J18.9 - Pneumonia, unspecified organism SNOMED Code(s): 425342140 (2) Type 2 diabetes mellitus with hemoglobin A1c goal of less than 7.0%: Status: Acute Code(s): E11.9 - Type 2 diabetes mellitus without complications SNOMED Code(s): 43990456 (3) Hypoxia: Status: Acute Code(s): R09.02 - Hypoxemia SNOMED Code(s): 470454674 (4) Essential hypertension: Status: Acute Code(s): I10 - Essential (primary) hypertension SNOMED Code(s): 51052774 Plan: continue antgbx, replete potassium--check cxr in am
[2022-07-20] MEDS ORDERED: OCEAN NASAL SPRAY NAS PRN (13:21)
[2022-07-20] MEDS: SEROQUEL PO SCH (21:27)
[2022-07-21] MEDS: DUONEB NEB SCH ×4 (04:35→19:43)
[2022-07-21] MEDS: FLAGYL 500 MG/100 ML 500 MG/100 ML BAG IV SCH ×3 (04:47→21:02)
[2022-07-21 05:33] LABS: BASOPHILS % (AUTO) 0.5 % (0.0-3.0); EOSINOPHILS # (AUTO) 0.2 K/ul (0.0-0.7); EOSINOPHILS % (AUTO) 3.1 % (0.0-7.0); HEMATOCRIT 31.3 % (37.0-47.0); HEMOGLOBIN 10.1 g/dl (12.0-16.0); IMMATURE GRANULOCYTE % (AUTO) 0.2 % (0.0-5.0); LYMPHOCYTES # (AUTO) 2.3 K/uL (0.60-3.4); LYMPHOCYTES % (AUTO) 38.2 (10.0-50.0); MEAN CORPUSCULAR HEMOGLOBIN 30.1 pg (27.0-31.0); MEAN CORPUSCULAR HGB CONC 32.3 (31.8-35.4); MEAN CORPUSCULAR VOLUME 93.2 fl (81.0-99.0); MONOCYTES # (AUTO) 0.7 K/uL (0.4-2.0); MONOCYTES % (AUTO) 10.8 (0-10); NEUTROPHILS # (AUTO) 2.9 K/ul (2.0-6.9); NEUTROPHILS % (AUTO) 47.2 % (42.2-75.2); PLATELET COUNT 152 10^3/uL (140-440); RED BLOOD COUNT 3.36 10^6/ul (4.20-5.40); WHITE BLOOD COUNT 6.12 K/ul (4.6-10.2)
[2022-07-21] MEDS: PERCOCET 10-325 PO PRN ×3 (05:33→22:11)
[2022-07-21] MEDS: SYNTHROID PO SCH (05:33)
[2022-07-21] MEDS: LASIX TAB PO SCH (05:33)
[2022-07-21 05:51] LABS: ALBUMIN 3.26 g/dL (3.5-5.0); ASPARTATE AMINO TRANSFERASE 14.4 U/L (14-36); BILIRUBIN,TOTAL 0.41 mg/dL (0.2-1.3); BLOOD UREA NITROGEN 9.9 mg/dL (7-17); CALCIUM 8.46 mg/dL (8.4-10.2); CARBON DIOXIDE 28.6 mmol/L (22-30.0); CHLORIDE 107.5 mmol/L (98-107); CREATININE 0.84 mg/dL (0.60-1.30); GLUCOSE 113.7 mg/dL (74-106); POTASSIUM 3.43 mmol/L (3.5-5.1); SODIUM 140.8 mmol/L (134.5-145); TOTAL PROTEIN 6.04 g/dL (6.3-8.2)
--- NOTE | 2022-07-21 08:32 | PCM.PROG ---
Date Seen by Provider: 07/21/22 Time Seen by Provider: 08:31 Subjective: i had chills last night---supine in bed---not wearing oxygen or telemetry Objective: Vitals: T=97.3 F, P=94, R=18, EU=726/70, SPO2=95 HEENT: [] Neck: [supple] Lungs: [scattered rhonchi] CVS: rrr Abdomen: [soft nt] Extremities: [] Neurological: [intact] Skin: [] Lab/Tests/Diagnostic Imaging: [cxr pending] (1) Pneumonia: Status: Acute Code(s): J18.9 - Pneumonia, unspecified organism SNOMED Code(s): 661948703 (2) Type 2 diabetes mellitus with hemoglobin A1c goal of less than 7.0%: Status: Acute Code(s): E11.9 - Type 2 diabetes mellitus without complications SNOMED Code(s): 46647235 (3) Hypoxia: Status: Acute Code(s): R09.02 - Hypoxemia SNOMED Code(s): 316316940 (4) Essential hypertension: Status: Acute Code(s): I10 - Essential (primary) hypertension SNOMED Code(s): 40317584 Plan: continue antbx---await cxr from this am
[2022-07-21] MEDS: ROCEPHIN 1 GM/50 ML D5W 1 GM/50 ML BAG IV SCH (08:50)
[2022-07-21] MEDS: TOPROL XL PO SCH (08:50)
[2022-07-21] MEDS: CATAPRES PO SCH ×2 (08:51→21:01)
[2022-07-21] MEDS: ZESTRIL PO SCH ×2 (08:51→21:02)
[2022-07-21] MEDS: KLONOPIN PO SCH ×3 (08:51→21:01)
[2022-07-21] MEDS: LOVENOX SUBCUT SCH (08:51)
[2022-07-21] MEDS: CELEBREX PO SCH (08:51)
[2022-07-21] MEDS: ZITHROMAX PO SCH (08:51)
[2022-07-21] MEDS: COGENTIN PO SCH ×3 (08:51→21:01)
[2022-07-21] MEDS: NEURONTIN PO SCH (08:51)
--- NOTE | 2022-07-21 10:06 | DI ---
EXAM: CHEST PA AND LATERAL HISTORY: Follow-up pneumonia. COMPARRISON: 07/19/2022 FINDINGS: The cardiomediastinal silhouette appears enlarged. Pulmonary vascularity is within normal limits. Bibasilar patchy airspace opacities appear worsened compared to prior exam. No evidence of pleural effusion or pneumothorax. Left upper lung punctate calcified granuloma is again seen. Lower cervical ACDF changes are seen. Suture anchor overlies the right humeral head. Lower thoracic spin al stimulator lead is seen. Multilevel thoracic disc space narrowing is seen. IMPRESSION: Interval worsened bibasilar pneumonia.
[2022-07-21] MEDS: DOXY-100 100 MG in SODIUM CHLORIDE 100ML 100 ML IV SCH ×2 (11:28→21:08)
[2022-07-21] MEDS: SEROQUEL PO SCH (21:02)
[2022-07-22] MEDS: DUONEB NEB SCH ×4 (04:35→20:25)
[2022-07-22] MEDS: FLAGYL 500 MG/100 ML 500 MG/100 ML BAG IV SCH ×2 (04:45→13:00)
[2022-07-22 06:10] LABS: BASOPHILS # (AUTO) 0.1 K/uL (0-0.2); BASOPHILS % (AUTO) 0.9 % (0.0-3.0); EOSINOPHILS # (AUTO) 0.2 K/ul (0.0-0.7); EOSINOPHILS % (AUTO) 3.2 % (0.0-7.0); HEMATOCRIT 31.8 % (37.0-47.0); HEMOGLOBIN 10.4 g/dl (12.0-16.0); IMMATURE GRANULOCYTE % (AUTO) 0.4 % (0.0-5.0); LYMPHOCYTES # (AUTO) 1.5 K/uL (0.60-3.4); LYMPHOCYTES % (AUTO) 26.8 (10.0-50.0); MEAN CORPUSCULAR HEMOGLOBIN 29.9 pg (27.0-31.0); MEAN CORPUSCULAR HGB CONC 32.7 (31.8-35.4); MEAN CORPUSCULAR VOLUME 91.4 fl (81.0-99.0); MONOCYTES # (AUTO) 0.7 K/uL (0.4-2.0); MONOCYTES % (AUTO) 11.4 (0-10); NEUTROPHILS # (AUTO) 3.3 K/ul (2.0-6.9); NEUTROPHILS % (AUTO) 57.3 % (42.2-75.2); PLATELET COUNT 165 10^3/uL (140-440); RDW COEFFICIENT OF VARIATION 12.1 % (11.6-14.8); RED BLOOD COUNT 3.48 10^6/ul (4.20-5.40); WHITE BLOOD COUNT 5.71 K/ul (4.6-10.2)
[2022-07-22] MEDS: LASIX TAB PO SCH (06:17)
[2022-07-22] MEDS: SYNTHROID PO SCH (06:17)
[2022-07-22] MEDS: PERCOCET 10-325 PO PRN ×3 (06:21→22:15)
[2022-07-22 06:22] LABS: ALANINE AMINOTRANSFERASE 7.9 U/L (0-35); ALBUMIN 3.37 g/dL (3.5-5.0); ALKALINE PHOSPHATASE 76.4 U/L (53-141); ASPARTATE AMINO TRANSFERASE 17.1 U/L (14-36); BILIRUBIN,TOTAL 0.46 mg/dL (0.2-1.3); BLOOD UREA NITROGEN 9.8 mg/dL (7-17); CALCIUM 7.78 mg/dL (8.4-10.2); CARBON DIOXIDE 26.7 mmol/L (22-30.0); CHLORIDE 103.4 mmol/L (98-107); CREATININE 0.83 mg/dL (0.60-1.30); GLUCOSE 122.7 mg/dL (74-106); POTASSIUM 3.6 mmol/L (3.5-5.1); SODIUM 138.4 mmol/L (134.5-145); TOTAL PROTEIN 6.21 g/dL (6.3-8.2)
[2022-07-22] MEDS: KLONOPIN PO SCH ×3 (08:44→21:21)
[2022-07-22] MEDS: CELEBREX PO SCH (08:44)
[2022-07-22] MEDS: NEURONTIN PO SCH (08:45)
[2022-07-22] MEDS: CATAPRES PO SCH ×2 (08:45→21:22)
[2022-07-22] MEDS: TOPROL XL PO SCH (08:45)
[2022-07-22] MEDS: COGENTIN PO SCH ×3 (08:45→21:21)
[2022-07-22] MEDS: LOVENOX SUBCUT SCH (08:45)
[2022-07-22] MEDS: ZESTRIL PO SCH ×2 (08:45→21:21)
[2022-07-22] MEDS: ROCEPHIN 1 GM/50 ML D5W 1 GM/50 ML BAG IV SCH ×2 (08:46→09:36)
--- NOTE | 2022-07-22 10:29 | PCM.PROG ---
Date Seen by Provider: 07/22/22 Time Seen by Provider: 08:50 Subjective: Patient still not feeling well. Requiring supplemental oxygen. Objective: Vitals: T=97.7 F, P=92, R=18, VM=060/86, SPO2=95 Patient appears somewhat weak. No respiratory distress. HEENT: [] Neck: [] Supple Lungs: [] Clear. BS decreased at both bases. CVS: [] RRR. Abdomen: [] Extremities: [] Neurological: [] Skin: [] Lab/Tests/Diagnostic Imaging: [] (1) Pneumonia: Status: Acute Code(s): J18.9 - Pneumonia, unspecified organism SNOMED Code(s): 801883630 (2) Type 2 diabetes mellitus with hemoglobin A1c goal of less than 7.0%: Status: Acute Code(s): E11.9 - Type 2 diabetes mellitus without complications SNOMED Code(s): 27921511 (3) Hypoxia: Status: Acute Code(s): R09.02 - Hypoxemia SNOMED Code(s): 466559778 (4) Essential hypertension: Status: Acute Code(s): I10 - Essential (primary) hypertension SNOMED Code(s): 09267246 Plan: Continue present care measures. Repeat CXR in AM. Increase activity.
[2022-07-22] MEDS: DOXY-100 100 MG in SODIUM CHLORIDE 100ML 100 ML IV SCH ×2 (10:39→22:47)
[2022-07-22] MEDS: SEROQUEL PO SCH (21:21)
[2022-07-23] MEDS: FLAGYL 500 MG/100 ML 500 MG/100 ML BAG IV SCH ×4 (01:17→22:49)
[2022-07-23] MEDS: DUONEB NEB SCH ×4 (05:02→20:35)
[2022-07-23 05:36] LABS: BASOPHILS # (AUTO) 0.1 K/uL (0-0.2); BASOPHILS % (AUTO) 1.1 % (0.0-3.0); EOSINOPHILS # (AUTO) 0.2 K/ul (0.0-0.7); EOSINOPHILS % (AUTO) 4.3 % (0.0-7.0); HEMATOCRIT 31.7 % (37.0-47.0); HEMOGLOBIN 10.2 g/dl (12.0-16.0); IMMATURE GRANULOCYTE # (AUTO) 0.1 (0.0-1.0); IMMATURE GRANULOCYTE % (AUTO) 1.1 % (0.0-5.0); LYMPHOCYTES # (AUTO) 1.8 K/uL (0.60-3.4); MEAN CORPUSCULAR HEMOGLOBIN 29.7 pg (27.0-31.0); MEAN CORPUSCULAR HGB CONC 32.2 (31.8-35.4); MEAN CORPUSCULAR VOLUME 92.4 fl (81.0-99.0); MONOCYTES # (AUTO) 0.7 K/uL (0.4-2.0); MONOCYTES % (AUTO) 12.1 (0-10); NEUTROPHILS # (AUTO) 2.8 K/ul (2.0-6.9); NEUTROPHILS % (AUTO) 49.4 % (42.2-75.2); PLATELET COUNT 187 10^3/uL (140-440); RDW COEFFICIENT OF VARIATION 12.2 % (11.6-14.8); RED BLOOD COUNT 3.43 10^6/ul (4.20-5.40); WHITE BLOOD COUNT 5.62 K/ul (4.6-10.2)
[2022-07-23] MEDS: PERCOCET 10-325 PO PRN ×2 (05:41→13:57)
[2022-07-23] MEDS: LASIX TAB PO SCH (05:41)
[2022-07-23] MEDS: SYNTHROID PO SCH (05:42)
[2022-07-23 05:50] LABS: ALANINE AMINOTRANSFERASE 6.6 U/L (0-35); ALBUMIN 3.14 g/dL (3.5-5.0); ALKALINE PHOSPHATASE 71.7 U/L (53-141); ASPARTATE AMINO TRANSFERASE 15.1 U/L (14-36); BILIRUBIN,TOTAL 0.34 mg/dL (0.2-1.3); BLOOD UREA NITROGEN 14.8 mg/dL (7-17); CHLORIDE 102.4 mmol/L (98-107); CREATININE 0.97 mg/dL (0.60-1.30); GLUCOSE 101.9 mg/dL (74-106); POTASSIUM 3.22 mmol/L (3.5-5.1); SODIUM 140.4 mmol/L (134.5-145); TOTAL PROTEIN 5.81 g/dL (6.3-8.2)
[2022-07-23] MEDS: ROCEPHIN 1 GM/50 ML D5W 1 GM/50 ML BAG IV SCH (08:14)
[2022-07-23] MEDS: LOVENOX SUBCUT SCH (08:14)
[2022-07-23] MEDS: NEURONTIN PO SCH (08:15)
[2022-07-23] MEDS: TOPROL XL PO SCH (08:15)
[2022-07-23] MEDS: KLONOPIN PO SCH ×3 (08:15→20:23)
[2022-07-23] MEDS: CELEBREX PO SCH (08:15)
[2022-07-23] MEDS: CATAPRES PO SCH ×2 (08:16→20:26)
[2022-07-23] MEDS: ZESTRIL PO SCH ×2 (08:16→20:25)
[2022-07-23] MEDS: COGENTIN PO SCH ×3 (08:16→20:23)
[2022-07-23] MEDS: DOXY-100 100 MG in SODIUM CHLORIDE 100ML 100 ML IV SCH ×2 (10:18→20:22)
[2022-07-23] MEDS: HUMULIN R SUBCUT PRN (11:07)
[2022-07-23] MEDS: K-DUR PO SCH (15:07)
--- NOTE | 2022-07-23 15:26 | PCM.PROG ---
Date Seen by Provider: 07/23/22 Time Seen by Provider: 15:23 Subjective: dx. pneumonia, hypoxia Objective: Vitals: T=96.6 F, P=80, R=16, GF=446/63, SPO2=95 HEENT: []conjunctiva clear Neck: []supple Lungs: [] no audible wheeze CVS: [] Abdomen: []nondistended Extremities: []rose Neurological: []alert and oriented Skin: []pink Lab/Tests/Diagnostic Imaging: [] K+ 3.2 (1) Pneumonia: Status: Acute Code(s): J18.9 - Pneumonia, unspecified organism SNOMED Code(s): 676158251 (2) Type 2 diabetes mellitus with hemoglobin A1c goal of less than 7.0%: Status: Acute Code(s): E11.9 - Type 2 diabetes mellitus without complications SNOMED Code(s): 90231001 (3) Hypoxia: Status: Acute Code(s): R09.02 - Hypoxemia SNOMED Code(s): 937478056 (4) Essential hypertension: Status: Acute Code(s): I10 - Essential (primary) hypertension SNOMED Code(s): 76987854 Plan: continue breathing treatments, start potassium supplement, stop lasix, obtain 3 step O2 analysis, continue antibiotics, am labs
[2022-07-23] MEDS ORDERED: ANTIVERT PO STA (18:12)
[2022-07-23] MEDS: SEROQUEL PO SCH (20:24)
--- NOTE | 2022-07-23 22:53 | CT ---
EXAM: CT PULMONARY ANGIOGRAM. HISTORY: Dyspnea and hypoxia. PROCEDURE: After the intravenous injection of contrast a CT pulmonary angiogram was performed with c ontiguous axial CT images of the chest with multiplanar reformats, MIP images and 3-D reformats. All CT scans are performed using dose optimization techniques as appropriate to a performed exam includi ng the following: Automated exposure control, Adjustment of the mA and/or kV according to patient siz e, Use of iterative reconstruction technique. FINDINGS: There is normal enhancement of the pulmonary arteries with no evidence of pulmonary embolis m. The heart is enlarged. The thoracic aorta is within normal limits in size. There are enlarged l eft hilar lymph nodes measuring up to 1.2 cm in short axis. There is a small layering left pleural e ffusion. There are bilateral infiltrates and patchy areas of consolidation, consistent with pneumoni a. There are degenerative changes in the spine. There is a dorsal column stimulator. There are a f ew loops of mildly distended air and fluid-filled small bowel measuring up to 3.3 cm in diameter. No transition point identified. There is fecal stasis in the visualized portion of the colon. Impression: No evidence of pulmonary embolism. Bilateral pneumonia as described. Small left pleural effusion. Lymphadenopathy as described. Recommend follow-up CT in 3 months to assess stability. Cardiomegaly. Nonspecific nonobstructive bowel gas pattern as described. The differential diagnosis includes ileus , enteritis and early/partial obstruction. Colonic fecal stasis. All CT scans are performed using dose optimization techniques as appropriate to the performed exam an d include at least one of the following: Automated exposure control, adjustment of the mA and/or kV according t o size, and the use of iterative reconstruction technique.
[2022-07-24] MEDS: PERCOCET 10-325 PO PRN ×4 (00:29→21:57)
[2022-07-24] MEDS: DUONEB NEB SCH ×4 (04:50→19:13)
[2022-07-24] MEDS: FLAGYL 500 MG/100 ML 500 MG/100 ML BAG IV SCH (05:12)
[2022-07-24 05:34] LABS: BASOPHILS % (AUTO) 0.7 % (0.0-3.0); EOSINOPHILS # (AUTO) 0.4 K/ul (0.0-0.7); EOSINOPHILS % (AUTO) 6.7 % (0.0-7.0); HEMOGLOBIN 9.9 g/dl (12.0-16.0); IMMATURE GRANULOCYTE % (AUTO) 0.7 % (0.0-5.0); LYMPHOCYTES % (AUTO) 36.1 (10.0-50.0); MEAN CORPUSCULAR HEMOGLOBIN 29.5 pg (27.0-31.0); MEAN CORPUSCULAR HGB CONC 31.9 (31.8-35.4); MEAN CORPUSCULAR VOLUME 92.3 fl (81.0-99.0); MONOCYTES # (AUTO) 0.5 K/uL (0.4-2.0); NEUTROPHILS # (AUTO) 2.5 K/ul (2.0-6.9); NEUTROPHILS % (AUTO) 45.8 % (42.2-75.2); PLATELET COUNT 207 10^3/uL (140-440); RDW COEFFICIENT OF VARIATION 12.3 % (11.6-14.8); RED BLOOD COUNT 3.36 10^6/ul (4.20-5.40)
[2022-07-24] MEDS: SYNTHROID PO SCH (05:44)
[2022-07-24 05:55] LABS: BLOOD UREA NITROGEN 15.3 mg/dL (7-17); CALCIUM 7.86 mg/dL (8.4-10.2); CARBON DIOXIDE 30.3 mmol/L (22-30.0); CHLORIDE 103.3 mmol/L (98-107); CREATININE 0.96 mg/dL (0.60-1.30); GLUCOSE 154.7 mg/dL (74-106); POTASSIUM 3.45 mmol/L (3.5-5.1); SODIUM 140.6 mmol/L (134.5-145)
[2022-07-24] MEDS: HUMULIN R SUBCUT PRN ×3 (06:23→21:11)
[2022-07-24] MEDS: CELEBREX PO SCH (08:29)
[2022-07-24] MEDS: TOPROL XL PO SCH (08:30)
[2022-07-24] MEDS: KLONOPIN PO SCH ×3 (08:30→21:07)
[2022-07-24] MEDS: NEURONTIN PO SCH (08:30)
[2022-07-24] MEDS: ZESTRIL PO SCH ×2 (08:30→21:08)
[2022-07-24] MEDS: COGENTIN PO SCH ×3 (08:30→21:08)
[2022-07-24] MEDS: K-DUR PO SCH (08:31)
[2022-07-24] MEDS: ROCEPHIN 1 GM/50 ML D5W 1 GM/50 ML BAG IV SCH (08:31)
[2022-07-24] MEDS: LOVENOX SUBCUT SCH (08:31)
[2022-07-24] MEDS: CATAPRES PO SCH ×2 (08:31→21:07)
[2022-07-24] MEDS: DOXY-100 100 MG in SODIUM CHLORIDE 100ML 100 ML IV SCH ×2 (09:39→21:03)
--- NOTE | 2022-07-24 10:28 | PCM.PROG ---
Date Seen by Provider: 07/24/22 Time Seen by Provider: 10:25 Subjective: dx. pneumonia Objective: Vitals: T=96.5 F, P=74, R=18, KT=134/65, SPO2=95 HEENT: [conjunctiva clear] Neck: []supple Lungs: [] wheezes CVS: []rrr Abdomen: []nontender Extremities: []warm and dry Neurological: []alert and oriented Skin: []pink Lab/Tests/Diagnostic Imaging: [] 3 step 91% did not qualify for home oxygen, K+3.45, cta chest no PE, persistant infiltrates (1) Pneumonia: Status: Acute Code(s): J18.9 - Pneumonia, unspecified organism SNOMED Code(s): 305583595 (2) Type 2 diabetes mellitus with hemoglobin A1c goal of less than 7.0%: Status: Acute Code(s): E11.9 - Type 2 diabetes mellitus without complications SNOMED Code(s): 62295976 (3) Hypoxia: Status: Acute Code(s): R09.02 - Hypoxemia SNOMED Code(s): 343599834 (4) Essential hypertension: Status: Acute Code(s): I10 - Essential (primary) hypertension SNOMED Code(s): 98023762 Plan: rocephin and flagyl fall off today, continue doxycycline, albuteral nebs, check cxr and labs tomorrow
[2022-07-24] MEDS: SEROQUEL PO SCH (21:08)
[2022-07-25] MEDS: DUONEB NEB SCH ×2 (04:35→10:09)
[2022-07-25 05:07] LABS: BASOPHILS % (AUTO) 0.7 % (0.0-3.0); EOSINOPHILS # (AUTO) 0.4 K/ul (0.0-0.7); EOSINOPHILS % (AUTO) 7.3 % (0.0-7.0); HEMATOCRIT 32.2 % (37.0-47.0); HEMOGLOBIN 10.2 g/dl (12.0-16.0); IMMATURE GRANULOCYTE % (AUTO) 0.5 % (0.0-5.0); LYMPHOCYTES # (AUTO) 2.5 K/uL (0.60-3.4); LYMPHOCYTES % (AUTO) 41.6 (10.0-50.0); MEAN CORPUSCULAR HEMOGLOBIN 29.6 pg (27.0-31.0); MEAN CORPUSCULAR HGB CONC 31.7 (31.8-35.4); MEAN CORPUSCULAR VOLUME 93.3 fl (81.0-99.0); MONOCYTES # (AUTO) 0.5 K/uL (0.4-2.0); MONOCYTES % (AUTO) 7.8 (0-10); NEUTROPHILS # (AUTO) 2.5 K/ul (2.0-6.9); NEUTROPHILS % (AUTO) 42.1 % (42.2-75.2); PLATELET COUNT 210 10^3/uL (140-440); RDW COEFFICIENT OF VARIATION 12.2 % (11.6-14.8); RED BLOOD COUNT 3.45 10^6/ul (4.20-5.40); WHITE BLOOD COUNT 5.92 K/ul (4.6-10.2)
[2022-07-25 05:19] LABS: BLOOD UREA NITROGEN 15.7 mg/dL (7-17); CALCIUM 7.86 mg/dL (8.4-10.2); CARBON DIOXIDE 27.3 mmol/L (22-30.0); CHLORIDE 107.8 mmol/L (98-107); CREATININE 0.97 mg/dL (0.60-1.30); GLUCOSE 143.4 mg/dL (74-106); POTASSIUM 3.55 mmol/L (3.5-5.1); SODIUM 142.5 mmol/L (134.5-145)
[2022-07-25 05:42] VITALS: BP 116/70; TEMP 96.5
[2022-07-25] MEDS: HUMULIN R SUBCUT PRN ×2 (06:20→12:58)
[2022-07-25] MEDS: SYNTHROID PO SCH (06:20)
[2022-07-25] MEDS: PERCOCET 10-325 PO PRN (09:19)
[2022-07-25] MEDS: K-DUR PO SCH (09:23)
[2022-07-25] MEDS: TOPROL XL PO SCH (09:24)
[2022-07-25] MEDS: NEURONTIN PO SCH (09:24)
[2022-07-25] MEDS: KLONOPIN PO SCH (09:25)
[2022-07-25] MEDS: ZESTRIL PO SCH (09:25)
[2022-07-25] MEDS: CATAPRES PO SCH (09:25)
[2022-07-25] MEDS: CELEBREX PO SCH (09:26)
[2022-07-25] MEDS: LOVENOX SUBCUT SCH (09:29)
[2022-07-25] MEDS: COGENTIN PO SCH (09:40)
[2022-07-25] MEDS: DOXY-100 100 MG in SODIUM CHLORIDE 100ML 100 ML IV SCH (09:40)
--- NOTE | 2022-07-25 11:15 | PCM.PROG ---
Date Seen by Provider: 07/25/22 Time Seen by Provider: 11:14 Subjective: dx pneumonia Objective: Vitals: T=96.5 F, P=68, R=18, QO=274/70, SPO2=94 HEENT: [] Neck: [] Lungs: [] clear CVS: [] Abdomen: [] Extremities: [] Neurological: [] Skin: [] Lab/Tests/Diagnostic Imaging: [] wbc 5.9 (1) Pneumonia: Status: Acute Code(s): J18.9 - Pneumonia, unspecified organism SNOMED Code(s): 501719413 (2) Type 2 diabetes mellitus with hemoglobin A1c goal of less than 7.0%: Status: Acute Code(s): E11.9 - Type 2 diabetes mellitus without complications SNOMED Code(s): 09555101 (3) Hypoxia: Status: Acute Code(s): R09.02 - Hypoxemia SNOMED Code(s): 136369602 (4) Essential hypertension: Status: Acute Code(s): I10 - Essential (primary) hypertension SNOMED Code(s): 22674030 Plan: discharge home today
--- NOTE | 2022-07-25 11:18 | PCM.DC ---
Final Diagnosis: pneumonia Physical Exam Appearance: Well-appearing Ill-appearing: None Pain Distress: None Eyes: Conjunctiva clear ENT: Oropharynx normal Neck: Supple Respiratory: Airway patent, Breath sounds clear and Breath sounds equal GI/: Nontender Musculoskeletal: ROM intact Skin: Warm and Dry Neurological: Alert and Oriented Psychiatric: Affect appropriate (1) Pneumonia: Status: Acute Code(s): J18.9 - Pneumonia, unspecified organism SNOMED Code(s): 119807228 (2) Type 2 diabetes mellitus with hemoglobin A1c goal of less than 7.0%: Status: Acute Code(s): E11.9 - Type 2 diabetes mellitus without complications SNOMED Code(s): 51183482 (3) Hypoxia: Status: Acute Code(s): R09.02 - Hypoxemia SNOMED Code(s): 173483056 (4) Essential hypertension: Status: Acute Code(s): I10 - Essential (primary) hypertension SNOMED Code(s): 03925408 Reason for Hospitalization: short of breath Prognosis/Condition at Discharge: good Medications at Discharge: home meds, plus doxycycline 5days, albuterol inhaler, medrol dose pk Lab/Diagnostics: ct chest bialteral pneumonia, no PE Education Provided to Patient and Family: how to use an inhaler Follow-ups: your doctor Discharge Disposition: Home Hospital Course: good, pt tested on 3 step and doesn't required home oxygen Plan: see your doctor, return if worse 40 min spent on discharge summary
--- NOTE | 2022-07-25 12:00 | DI ---
EXAM: CHEST RADIOGRAPH TECHNIQUE: Two views. Frontal and lateral. HISTORY: Pneumonia COMPARISON: 07/21/2022 FINDINGS: There has been improvement in right lower lobe infiltrate. There is stable linear scarring in the le ft base. The heart size is normal. Osseaous structures are unremarkable IMPRESSION: 1. Improving infiltrates in the right lower lobe
== END 2022-07-25 14:40 | disposition home or self-care (01) | DRG 195 ==
LOC: ED 14:58 → MEDSURG A 16:42
PROVIDERS: ADMIT Surgery; ATTEND Internal Medicine Geriatric Medicine
DX: R09.02 Hypoxemia; Z20.822 Contact with and (suspected) exposure to COVID-19; M32.9 Systemic lupus erythematosus, unspecified; Z79.84 Long term (current) use of oral hypoglycemic drugs; D51.0 Vitamin B12 deficiency anemia due to intrinsic factor deficiency; F41.9 Anxiety disorder, unspecified; Z51.81 Encounter for therapeutic drug level monitoring; R06.02 Shortness of breath; E11.9 Type 2 diabetes mellitus without complications; E03.9 Hypothyroidism, unspecified; Z79.899 Other long term (current) drug therapy; I10 Essential (primary) hypertension; K21.9 Gastro-esophageal reflux disease without esophagitis; M54.50 Low back pain, unspecified; R06.00 Dyspnea, unspecified; J18.9 Pneumonia, unspecified organism; R07.9 Chest pain, unspecified; E78.5 Hyperlipidemia, unspecified

== ENCOUNTER 2024-07-17 13:18 | Observation (INO) ==
--- NOTE | 2024-07-17 13:58 | ED.PDOC ---
General ED Provider: Dr. TIM PAGAN MD Chief Complaint: Non-specific Complaint Stated Complaint: Patient is a 68-year-old female who presents to the ED for IV antibiotics. The patient states that she has been having UTI symptoms since her hospitalization in May and was recently in her doctor's office 2 days ago and was supposed to start on antibiotics by home health. The patient was evaluated by home health and as the patient did not have any PICC line access, they recommended the patient to go to the ER. Patient complains of some lower abdominal pain and burning sensation with urination. Patient denies any fever or chills. Patient continues to have diarrhea which is unchanged and was tested for C. difficile yesterday. Patient denies any chest pain or shortness of breath or any neurological deficits at this point of time. Time Seen by Provider: 07/17/24 13:29 Mode of Arrival: Wheelchair Information Source: Patient Exam Limitations: No limitations Primary Care Provider: DIOR CARRENO MD Nursing and Triage Documentation Reviewed and Agree: Yes What is Opioid Naive?: *Opioid Naive implies the patient is not already taking opioids or not chronically receiving opioids on a daily basis. *PRN dosing is not "usually" associated with tolerance. *Patients are at higher risk of over-sedation and aspiration. What is Opioid Tolerant?: *Opioid Tolerance implies less than the expected response to an opioid. *Acquired tolerance is defined by the patient taking 60mg of oral morphine daily (or equianalgesic dose of another opioid) for 1 week or more. *Often associated with chronic pain. *May take more than usual dose to achieve desired pain control. Review of Systems Review Of Systems Constitutional: Reports Malaise and Weakness Eyes: Reports No symptoms Ears, Nose, Mouth, Throat: Reports No symptoms Respiratory: Reports No symptoms Cardiac: Reports No symptoms GI: Reports Abdominal pain, Diarrhea and Nausea : Reports Dysuria and Frequency Musculoskeletal: Reports No symptoms Skin: Reports No symptoms Neurological: Reports No symptoms Endocrine: Reports No symptoms Hematologic/Lymphatic: Reports No symptoms All Other Systems: Reviewed and Negative [facility] Medical History Falls R29.6 - Repeated falls (ICD-10) Weakness R53.1 - Weakness (ICD-10) Tinea cruris Just finished steroids. recommend to check sugars at home. Topical treatment d/w patient x 1-2 weeks. Noel lamp eval, no e/o erythrasma. Call w/ update in 1 week. B35.6 - Tinea cruris (ICD-10) Pneumonia J18.9 - Pneumonia, unspecified organism (ICD-10) Rotator cuff arthropathy of right shoulder M12.811 - Other specific arthropathies, not elsewhere classified, right shoulder (ICD-10) Melanoma C43.9 - Malignant melanoma of skin, unspecified (ICD-10) Lupus (systemic lupus erythematosus) M32.9 - Systemic lupus erythematosus, unspecified (ICD-10) Lupus Biopsy repeat ruled out. No lupus. M32.9 - Systemic lupus erythematosus, unspecified (ICD-10) Phlebitis I80.9 - Phlebitis and thrombophlebitis of unspecified site (ICD-10) Lupus (systemic lupus erythematosus) M32.9 - Systemic lupus erythematosus, unspecified (ICD-10) Carpal tunnel syndrome on both sides G56.03 - Carpal tunnel syndrome, bilateral upper limbs (ICD-10) Pernicious anemia D51.0 - Vitamin B12 deficiency anemia due to intrinsic factor deficiency (ICD-10) B12 deficiency E53.8 - Deficiency of other specified B group vitamins (ICD-10) Asthma J45.909 - Unspecified asthma, uncomplicated (ICD-10) Irritable bowel syndrome (06/23/17) Dr. Blunt at [facility] K58.9 - Irritable bowel syndrome without diarrhea (ICD-10) Hypertension I10 - Essential (primary) hypertension (ICD-10) Non-insulin dependent type 2 diabetes mellitus (03/04/16) E11.9 - Type 2 diabetes mellitus without complications (ICD-10) Esophageal spasm (03/04/16) K22.4 - Dyskinesia of esophagus (ICD-10) Gastroesophageal reflux disease K21.9 - Gastro-esophageal reflux disease without esophagitis (ICD-10) SCC (squamous cell carcinoma) (11/04/17) Removed 11/04/17, margins clear (ALL) C44.92 - Squamous cell carcinoma of skin, unspecified (ICD-10) Suicide attempt T14.91XA - Suicide attempt, initial encounter (ICD-10) Hypothyroidism E03.9 - Hypothyroidism, unspecified (ICD-10) Hyperlipidemia E78.5 - Hyperlipidemia, unspecified (ICD-10) Depression F32.9 - Major depressive disorder, single episode, unspecified (ICD-10) Anxiety F41.9 - Anxiety disorder, unspecified (ICD-10) Pernicious anemia (03/04/16) D51.0 - Vitamin B12 deficiency anemia due to intrinsic factor deficiency (ICD-10) Chronic lower back pain M54.5 - Low back pain (ICD-10) Shingles 04/2017 B02.9 - Zoster without complications (ICD-10) Medicare annual wellness visit, subsequent (03/11/17) 2015 as well. Z00.00 - Encounter for general adult medical examination without abnormal findings (ICD-10) Skin cancer C44.90 - Unspecified malignant neoplasm of skin, unspecified (ICD-10) Family History Mother Anemia Autoimmune disorder Cancer of unknown origin FATHER RA (rheumatoid arthritis) Maternal gr father Cancer of unknown origin Other Chronic lung disease Skin cancer Social History Smoking and tobacco status: Never smoker Second hand smoke exposure: No Alcohol intake: never Substance use type: does not use Freida/zoroastrian: ZOROASTRIANISM Special freida needs: No Agree to transfusion: Yes Adopted: No Caregiver/support person: No Foster care: No Household members: spouse Housing: house Lives independently: Yes Daycare: no daycare Number of children: 1 Number of grandchildren: 4 Highest education level completed: Associate degree: academic program Financial difficulty paying for basics: not very hard service: No CHCF: No Current occupational status: disabled Current occupational exposures/hazards: No Pets and animals: Yes (candy ) Leisure activites: art History of recent travel: Yes Do you think of yourself as: straight/heterosexual Current gender identity: female Seatbelt use: always Helmet use: No Drives intoxicated or rides with intoxicated dray truck driver: No Water heater temperature set < 120 degrees: Yes Working smoke detector in home: Yes Fire extinguisher in home: Yes Carbon monoxide detector in home: Yes Firearms in home: Yes Firearms unloaded and locked: Yes Surgical History H/O: hysterectomy Z90.710 - Acquired absence of both cervix and uterus (ICD-10) S/p bilateral myringotomy with tube placement Z96.22 - Myringotomy tube(s) status (ICD-10) H/O melanoma excision left leg Z98.890 - Other specified postprocedural states (ICD-10) Z85.820 - Personal history of malignant melanoma of skin (ICD-10) 2011 L4-5 and L5-S1 2010 (04/03/17) (04/19/18) Right (03/04/16) [place] and ver[place]ca frozen with LN by Dr. Carreno 03/04/16 (05/30/17) History of musculoskeletal system surgery left knee scope 1994 (Torn cartilage) Left knee scope torn meniscus 2003 Right Ankle scope (Torn cartilage). Z98.890 - Other specified postprocedural states (ICD-10) History of tubal ligation 1980 Z98.51 - Tubal ligation status (ICD-10) 2007 Colonoscopic polypectomy (05/30/17) 2015 Status post hysterectomy 1981 Z90.710 - Acquired absence of both cervix and uterus (ICD-10) Status post cholecystectomy 1988. Z90.49 - Acquired absence of other specified parts of digestive tract (ICD- 10) History of section 1974 Z98.891 - History of uterine scar from previous surgery (ICD-10) History of orthopedic surgery 2000 Right 2002 Left Z98.890 - Other specified postprocedural states (ICD-10) History of breast biopsy Right lumpectomy benign Left breast biopsy Needle Benign Z98.890 - Other specified postprocedural states (ICD-10) History of spinal surgery C5-6 2006 Z98.890 - Other specified postprocedural states (ICD-10) Female Reproductive History Menstrual Age of Menarche: 12 Hx Hysterectomy: Yes Hx Tubal Ligation: No Physical Exam Physical Exam Appearance: Reports Well-appearing, No pain distress and Well-nourished Ill-appearing: None Pain Distress: None Eyes: Reports IRMA, EOMI and Conjunctiva clear ENT: Reports Ears normal, Nose normal and Oropharynx normal Neck: Supple Respiratory: Reports Breath sounds clear, Breath sounds equal and Respirations nonlabored Cardiovascular: Reports RRR and Pulses normal GI/: Reports Soft and Tender (Mild suprapubic tenderness, no guarding or rigidity.) Musculoskeletal: Reports Normal strength and ROM intact Skin: Reports Warm and Normal color Neurological: Reports Cranial nerves intact, Alert and Oriented Psychiatric: Reports Anxious Physician Notification Case Discussed Endorsed To/Discussed With: Yefri Raygoza NP for the hospitalist Time of Discussion: 14:30 Admit/Transition Orders Entered by ED Provider: Yes Admit To: Inpatient Course Course 07/17/24 14:53 07/17/24 14:53 Orders, Labs, Meds: Lab Review 07/17/24 07/17/24 14:30 14:53 WBC 4.81 RBC 2.92 L Hgb 9.1 L Hct 29.4 L MCV 100.7 H MCH 31.2 H MCHC 31.0 L RDW Coeff of Niki 14.0 Plt Count 133 L Immature Gran % (Auto) 0.2 Neut % (Auto) 42.3 Lymph % (Auto) 46.8 [place] % (Auto) 8.9 Eos % (Auto) 1.0 Baso % (Auto) 0.8 Neut # (Auto) 2.0 Lymph # (Auto) 2.3 [place] # (Auto) 0.4 Eos # (Auto) 0.1 Baso # (Auto) 0.0 Immature Gran # (Auto) 0.0 Sodium 138.7 Potassium 3.19 L Chloride 114.3 H Carbon Dioxide 21.0 L Anion Gap 6.59 BUN 10.8 Creatinine 0.86 Estimated GFR (MDRD) 65.00 BUN/Creatinine Ratio 12.55 Glucose 116.9 H Calcium 6.96 L Total Bilirubin 0.37 AST 27.6 ALT 16.8 Alkaline Phosphatase 96.9 Total Protein 4.06 L Albumin 1.65 L Globulin 2.41 Albumin/Globulin Ratio 0.68 Procalcitonin 0.19 H SARS CoV-2 RNA Rapid LONNY Negative Orders Category Date Time Status PLACE PATIENT OBSERVATION .TO [facility] (MONITORED BED ADMISSION 07/17/24 16:22 Active ) ACTIVITY .Early Mobilization for VTE Prevention CARE 07/17/24 16:22 Active INTAKE & OUTPUT Q8HR CARE 07/17/24 16:22 Active TELEMETRY MONITORING TELE CARE 07/17/24 16:23 Active VITAL SIGNS Q4HR CARE 07/17/24 16:23 Active REGULAR DIET DIETARY 07/17/24 Dinner Ordered CBC W/ AUTO DIFF DAILY@0600 LAB 07/18/24 06:00 Ordered CBC W/ AUTO DIFF DAILY@0600 LAB 07/19/24 06:00 Ordered CBC W/ AUTO DIFF Stat LAB 07/17/24 14:53 Completed CMP [COMPREHENSIVE METABOLIC PANEL] Stat LAB 07/17/24 14:53 Completed COMPREHENSIVE METABOLIC PANEL DAILY@0600 LAB 07/18/24 06:00 Ordered COMPREHENSIVE METABOLIC PANEL DAILY@0600 LAB 07/19/24 06:00 Ordered PROCALCITONIN Stat LAB 07/17/24 14:53 Completed SARS COV-2 RNA RAPID LONNY Stat LAB 07/17/24 14:30 Completed Acetaminophen [Tylenol] Meds 07/17/24 16:22 Active 650 mg PO Q4H PRN Ciprofloxacin/D5w [Cipro 400 mg/200 ml D5w] Meds 07/17/24 21:00 Active 400 mg in 200 ml IV Q12HR Vancomycin [Firvanq] Meds 07/17/24 18:00 Active 125 mg PO Q6HR Medications Generic Name Dose Route Start Last Admin Trade Name Freq PRN Reason Stop Dose Admin Acetaminophen 650 mg 07/17/24 16:22 Acetaminophen 325 Mg Tablet PO Q4H PRN Mild Pain Albuterol Sulfate 2 puff 07/17/24 21:00 07/17/24 23:53 Albuterol Sulfate 8 Gm Inhaler IH Not Given RTQID MOISES Albuterol/Ipratropium 3 ml 07/17/24 18:36 Ipratropium/Albuterol Vial.Neb NEB QID PRN Wheezing Furosemide 20 mg 07/18/24 06:30 Furosemide 20 Mg Tablet PO 0630 MOISES Ciprofloxacin/Dextrose 400 mg in 200 mls @ 200 mls/hr 07/17/24 21:00 07/17/24 22:30 Cipro 400 Mg/200 Ml D5w IV 07/20/24 20:59 200 mls/hr Q12HR MOISES Administration Levothyroxine Sodium 200 mcg 07/17/24 19:00 07/17/24 20:50 Levothyroxine Sodium 100 Mcg Tablet PO Not Given 0630 [facility] Protocol Levothyroxine Sodium 25 mcg 07/18/24 06:30 Levothyroxine Sodium 25 Mcg Tablet PO 0630 [facility] Protocol Non-Formulary Medication 25 mcg 07/17/24 18:45 Liothyronine PO QDAY MOISES Non-Formulary Medication 1,250 mcg 07/17/24 18:45 Cholecalciferol (Vitamin D3) PO QWEEK MOISES Ondansetron HCl 4 mg 07/17/24 18:36 Ondansetron Hcl 4 Mg Tablet PO QID PRN Nausea / Vomiting Oxycodone/Acetaminophen 1 tab 07/17/24 18:36 07/17/24 20:49 Oxycodone/Acetaminophen 10/325 Mg Tablet PO 1 tab Q6H PRN Administration Pain Pantoprazole Sodium 40 mg 07/18/24 06:30 Pantoprazole Sodium 40 Mg Tablet. PO 0630 MOISES Quetiapine Fumarate 100 mg 07/17/24 21:00 07/17/24 20:53 Quetiapine Fumarate 100 Mg Tablet PO 100 mg BEDTIME MOISES Administration Saccharomyces Boulardii 250 mg 07/17/24 21:00 07/17/24 20:49 Saccharomyces Boulardii 250 Mg Capsule PO 250 mg BID MOISES Administration Vancomycin HCl 125 mg 07/17/24 18:00 07/18/24 01:26 Vancomycin 250 Mg/5 Ml Btl PO 07/27/24 17:59 Not Given Q6HR MOISES Discontinued Medications Generic Name Dose Route Start Last Admin Trade Name Freq PRN Reason Stop Dose Admin CALCIUM GLUC IN NACL, ISO-OSM 2,000 mg in 200 mls @ 400 mls/hr 07/17/24 18:35 07/17/24 20:46 Calcium Gluconate 1,000 Mg/100 Ml Ns IV 07/17/24 19:04 400 mls/hr ONCE ONE Administration Potassium Chloride 40 meq 07/17/24 19:39 07/17/24 20:51 Potassium Chloride 40 Meq/30 Ml Cup PO 07/17/24 19:40 40 meq ONCE ONE Administration Vital Signs: Temp Pulse Resp BP Pulse Ox 07/17/24 13:55 98 F 76 16 153/81 H 100 Differential diagnosis include but not limited to cystitis, pyelonephritis, diverticulitis, proctitis, constipation, bladder stone, appendicitis. ER course: Patient is a 68-year-old female who presented on recommendation of the home health to get the IV antibiotics. On review of the charts and the information provided from the patient it was found that patient recently tested positive for C. difficile yesterday and also has been having UTI. The patient was supposed to get IV antibiotics at home but has home health cannot place a PICC line because the patient did not have any orders they recommended the patient to go to the ER. Patient states that she cannot take oral antibiotics as she cannot swallow and the liquids and ciprofloxacin are not available at the pharmacy so she came to the ER. Will admit her and the hospitalist team to start her on medications for COVID and UTI. I could not start the antibiotics as I was not able to view the urine culture reports from her doctor's office, this was conveyed to the admitting team and they would take care of the choice of antibiotic. Patient hemodynamically stable. Discussed with Yefri Raygoza NP for the hospitalist group. Discharge Plan Discharge Patient Disposition: ADMITTED INPATIENT Discharge Problem: Clostridioides difficile infection, Hypocalcemia UTI (urinary tract infection) Qualifiers: Urinary tract infection type: site unspecified Did you review [place] BAG[employer] INS[employer]OR for ALL controlled substances?: Not Applicable ED Provider: TIM PAGAN Condition: Good
[2024-07-17 15:08] LABS: BASOPHILS % (AUTO) 0.8 % (0.0-3.0); EOSINOPHILS # (AUTO) 0.1 K/ul (0.0-0.7); HEMATOCRIT 29.4 % (37.0-47.0); HEMOGLOBIN 9.1 g/dl (12.0-16.0); IMMATURE GRANULOCYTE % (AUTO) 0.2 % (0.0-5.0); LYMPHOCYTES # (AUTO) 2.3 K/uL (0.60-3.4); LYMPHOCYTES % (AUTO) 46.8 (10.0-50.0); MEAN CORPUSCULAR HEMOGLOBIN 31.2 pg (27.0-31.0); MEAN CORPUSCULAR VOLUME 100.7 fl (81.0-99.0); MONOCYTES # (AUTO) 0.4 K/uL (0.4-2.0); MONOCYTES % (AUTO) 8.9 (0-10); NEUTROPHILS % (AUTO) 42.3 % (42.2-75.2); PLATELET COUNT 133 10^3/uL (140-440); RED BLOOD COUNT 2.92 10^6/ul (4.20-5.40); WHITE BLOOD COUNT 4.81 K/ul (4.6-10.2)
[2024-07-17 15:23] LABS: ALANINE AMINOTRANSFERASE 16.8 U/L (0-35); ALBUMIN 1.65 g/dL (3.5-5.0); ALKALINE PHOSPHATASE 96.9 U/L (53-141); ASPARTATE AMINO TRANSFERASE 27.6 U/L (14-36); BILIRUBIN,TOTAL 0.37 mg/dL (0.2-1.3); BLOOD UREA NITROGEN 10.8 mg/dL (7-17); CALCIUM 6.96 mg/dL (8.4-10.2); CHLORIDE 114.3 mmol/L (98-107); CREATININE 0.86 mg/dL (0.60-1.30); GLUCOSE 116.9 mg/dL (74-106); POTASSIUM 3.19 mmol/L (3.5-5.1); SODIUM 138.7 mmol/L (134.5-145); TOTAL PROTEIN 4.06 g/dL (6.3-8.2)
[2024-07-17] MEDS ORDERED: TYLENOL PO PRN (16:22)
[2024-07-17 17:13] LABS: SARS COV-2 RNA RAPID NAAT NEGATIVE (NEGATIVE)
[2024-07-17] MEDS: FIRVANQ PO SCH (18:03)
[2024-07-17 18:13] VITALS: BMI 24.9
[2024-07-17] MEDS ORDERED: DUONEB NEB PRN (18:36)
--- NOTE | 2024-07-17 18:49 | PCM ---
Date of Service Date Seen by Provider: 07/17/24 Time Seen by Provider: 16:00 Admit Day/Time Admission Date: 07/17/24 Reason for Admission Chief Complaint: UTI,C-DIFF Hospital Provider Hospital Provider: JOSE ROBERTS, [facility] Primary Care Physician Primary Care Physician: DIOR CARRENO MD History of Present Illness History of Present Illness: 68 yo female with lengthy pmh presented to the ER after discovering she has UTI d/t pseudomonas and Cdiff yesterday from local PCP. States that she has had vaginal pain and swelling since she was discharged from [facility] at this facility that has persisted. Also has had diarrhea and nausea. States she was checked for cdiff during her acute stay prior to [facility] and it was negative. No concerns for cdiff present during stay. 2/6 UA was collected at PCP office. Growth of pseudomonas was present. Patient has difficulty swallowing pills and medications appropriate for treatment were either too expensive or unavailable in liquid form. PCP planned for home health to administer IV antibiotics but patient did not have PICC line and refused to have one placed. States she has had low grade fever intermittently with the other symptoms discussed. Admitted to med/surg. Case Discussed With Case Discussed With: Patient's case was discussed with the ER Physicians, Dr. Barr. [facility] Medical History Falls R29.6 - Repeated falls (ICD-10) Weakness R53.1 - Weakness (ICD-10) Tinea cruris Just finished steroids. recommend to check sugars at home. Topical treatment d/w patient x 1-2 weeks. Noel lamp eval, no e/o erythrasma. Call w/ update in 1 week. B35.6 - Tinea cruris (ICD-10) Pneumonia J18.9 - Pneumonia, unspecified organism (ICD-10) Rotator cuff arthropathy of right shoulder M12.811 - Other specific arthropathies, not elsewhere classified, right shoulder (ICD-10) Melanoma C43.9 - Malignant melanoma of skin, unspecified (ICD-10) Lupus (systemic lupus erythematosus) M32.9 - Systemic lupus erythematosus, unspecified (ICD-10) Lupus Biopsy repeat ruled out. No lupus. M32.9 - Systemic lupus erythematosus, unspecified (ICD-10) Phlebitis I80.9 - Phlebitis and thrombophlebitis of unspecified site (ICD-10) Lupus (systemic lupus erythematosus) M32.9 - Systemic lupus erythematosus, unspecified (ICD-10) Carpal tunnel syndrome on both sides G56.03 - Carpal tunnel syndrome, bilateral upper limbs (ICD-10) Pernicious anemia D51.0 - Vitamin B12 deficiency anemia due to intrinsic factor deficiency (ICD-10) B12 deficiency E53.8 - Deficiency of other specified B group vitamins (ICD-10) Asthma J45.909 - Unspecified asthma, uncomplicated (ICD-10) Irritable bowel syndrome (06/23/17) Dr. Blunt at [facility] K58.9 - Irritable bowel syndrome without diarrhea (ICD-10) Hypertension I10 - Essential (primary) hypertension (ICD-10) Non-insulin dependent type 2 diabetes mellitus (03/04/16) E11.9 - Type 2 diabetes mellitus without complications (ICD-10) Esophageal spasm (03/04/16) K22.4 - Dyskinesia of esophagus (ICD-10) Gastroesophageal reflux disease K21.9 - Gastro-esophageal reflux disease without esophagitis (ICD-10) SCC (squamous cell carcinoma) (11/04/17) Removed 11/04/17, margins clear (ALL) C44.92 - Squamous cell carcinoma of skin, unspecified (ICD-10) Suicide attempt T14.91XA - Suicide attempt, initial encounter (ICD-10) Hypothyroidism E03.9 - Hypothyroidism, unspecified (ICD-10) Hyperlipidemia E78.5 - Hyperlipidemia, unspecified (ICD-10) Depression F32.9 - Major depressive disorder, single episode, unspecified (ICD-10) Anxiety F41.9 - Anxiety disorder, unspecified (ICD-10) Pernicious anemia (03/04/16) D51.0 - Vitamin B12 deficiency anemia due to intrinsic factor deficiency (ICD-10) Chronic lower back pain M54.5 - Low back pain (ICD-10) Shingles 04/2017 B02.9 - Zoster without complications (ICD-10) Medicare annual wellness visit, subsequent (03/11/17) 2015 as well. Z00.00 - Encounter for general adult medical examination without abnormal findings (ICD-10) Skin cancer C44.90 - Unspecified malignant neoplasm of skin, unspecified (ICD-10) Surgical History H/O: hysterectomy Z90.710 - Acquired absence of both cervix and uterus (ICD-10) S/p bilateral myringotomy with tube placement Z96.22 - Myringotomy tube(s) status (ICD-10) H/O melanoma excision left leg Z98.890 - Other specified postprocedural states (ICD-10) Z85.820 - Personal history of malignant melanoma of skin (ICD-10) 2011 L4-5 and L5-S1 2010 (04/03/17) (04/19/18) Right (03/04/16) [place] and [place] frozen with LN by Dr. Carreno 03/04/16 (05/30/17) History of musculoskeletal system surgery left knee scope 1994 (Torn cartilage) Left knee scope torn meniscus 2003 Right Ankle scope (Torn cartilage). Z98.890 - Other specified postprocedural states (ICD-10) History of tubal ligation 1980 Z98.51 - Tubal ligation status (ICD-10) 2007 Colonoscopic polypectomy (05/30/17) 2015 Status post hysterectomy 1981 Z90.710 - Acquired absence of both cervix and uterus (ICD-10) Status post cholecystectomy 1988. Z90.49 - Acquired absence of other specified parts of digestive tract (ICD- 10) History of section 1974 Z98.891 - History of uterine scar from previous surgery (ICD-10) History of orthopedic surgery 2000 Right 2002 Left Z98.890 - Other specified postprocedural states (ICD-10) History of breast biopsy Right lumpectomy benign Left breast biopsy Needle Benign Z98.890 - Other specified postprocedural states (ICD-10) History of spinal surgery C5-6 2006 Z98.890 - Other specified postprocedural states (ICD-10) Family History Mother Anemia Autoimmune disorder Cancer of unknown origin FATHER RA (rheumatoid arthritis) Maternal gr father Cancer of unknown origin Other Chronic lung disease Skin cancer Social History Smoking and tobacco status: Never smoker Second hand smoke exposure: No Alcohol intake: never Substance use type: does not use Freida/confucianist: ADVENTIST Special freida needs: No Agree to transfusion: Yes Adopted: No Caregiver/support person: No Foster care: No Household members: spouse Housing: house Lives independently: Yes Daycare: no daycare Number of children: 1 Number of grandchildren: 4 Highest education level completed: Associate degree: academic program Financial difficulty paying for basics: not very hard service: No MCC: No Current occupational status: disabled Current occupational exposures/hazards: No Pets and animals: Yes (candy ) Leisure activites: art History of recent travel: Yes Do you think of yourself as: straight/heterosexual Current gender identity: female Seatbelt use: always Helmet use: No Drives intoxicated or rides with intoxicated rail car driver: No Water heater temperature set < 120 degrees: Yes Working smoke detector in home: Yes Fire extinguisher in home: Yes Carbon monoxide detector in home: Yes Firearms in home: Yes Firearms unloaded and locked: Yes Allergies Allergies Allergy/AdvReac Type Severity Reaction Status Date / Time clindamycin AdvReac Severe Anaphylaxis Verified 07/17/24 14:06 colchicine AdvReac Severe Vomiting Verified 07/17/24 14:06 etodolac AdvReac Intermediate Abdominal Verified 07/17/24 14:06 Pain amlodipine (From Norvasc) AdvReac Swelling Verified 07/17/24 14:06 fenofibrate AdvReac Unknown Verified 07/17/24 14:06 Penicillins AdvReac Unknown Verified 07/17/24 14:06 [id number] Reductase AdvReac Swelling Verified 07/17/24 14:06 Inhibitor Current Medications Home Medications Acetaminophen (Acetaminophen 325 Mg Tablet) 650 mg PO Q4H PRN PRN Reason: Mild Pain Albuterol Sulfate (Albuterol Sulfate 8 Gm Inhaler) 2 puff IH QID MOISES Albuterol/Ipratropium (Ipratropium/Albuterol Vial.Neb) 3 ml NEB QID PRN PRN Reason: Wheezing Furosemide (Furosemide 20 Mg Tablet) 20 mg PO QAM MOISES Ciprofloxacin/Dextrose (Cipro 400 Mg/200 Ml D5w) 400 mg in 200 mls @ 200 mls/hr IV Q12HR MOISES Stop: 07/20/24 20:59 CALCIUM GLUC IN NACL, ISO-OSM (Calcium Gluconate 1,000 Mg/100 Ml Ns) 2,000 mg in 200 mls @ 400 mls/hr IV ONCE ONE Stop: 07/17/24 19:04 Levothyroxine Sodium (Levothyroxine Sodium 100 Mcg Tablet) 200 mcg PO QDAY MOISES Levothyroxine Sodium (Levothyroxine Sodium 25 Mcg Tablet) 25 mcg PO QDAY MOISES Non-Formulary Medication (Liothyronine) 25 mcg PO QDAY [facility] Non-Formulary Medication (Cholecalciferol (Vitamin D3)) 1,250 mcg PO QWEEK MOISES Ondansetron HCl (Ondansetron Hcl 4 Mg Tablet) 4 mg PO QID PRN PRN Reason: Nausea / Vomiting Oxycodone/Acetaminophen (Oxycodone/Acetaminophen 10/325 Mg Tablet) 1 tab PO Q6H PRN PRN Reason: Pain Pantoprazole Sodium (Pantoprazole Sodium 40 Mg Tablet.Dr) 40 mg PO QDAC2 MOISES Quetiapine Fumarate (Quetiapine Fumarate 100 Mg Tablet) 100 mg PO BEDTIME MOISES Vancomycin HCl (Vancomycin 250 Mg/5 Ml Btl) 125 mg PO Q6HR MOISES Stop: 07/27/24 17:59 Last Admin: 07/17/24 18:03 Dose: 125 mg needle (disp) 25 gauge 25 gauge x 5/8" (BD PrecisionGlide Non-Sterile) #12 ea 10/13/18 [Rx Confirmed 07/17/24] blood sugar diagnostic (OneTouch Verio test strips) #10 ea 03/22/20 [Rx Confirmed 07/17/24] blood-glucose meter (OneTouch Verio IQ Meter kit) #1 ea 03/22/20 [Rx Confirmed 07/17/24] lancets 33 gauge (OneTouch Delica Plus Lancet) #100 ea 03/22/20 [Rx Confirmed 07/17/24] oxycodone-acetaminophen 10 mg-325 mg tablet (Percocet) 1 tab PO Q6H PRN pain #120 tabs 03/22/20 [Rx Confirmed 07/17/24] albuterol sulfate 90 mcg/actuation aerosol inhaler 2 puff inhalation QID #1 ea 07/25/22 [Rx Confirmed 07/17/24] ipratropium 0.5 mg-albuterol 3 mg (2.5 mg base)/3 mL nebulization soln 3 ml inhalation QID PRN bronchitis #180 mL 04/17/23 [Rx Confirmed 07/17/24] cholecalciferol (vitamin D3) 1,250 mcg (50,000 unit) capsule 1,250 mcg PO QWEEK #8 caps 07/28/23 [Rx Confirmed 07/17/24] pantoprazole 40 mg tablet,delayed release 40 mg PO DIRECTED #120 tabs 03/25/24 [Rx Confirmed 07/17/24] furosemide 20 mg tablet 20 mg PO QAM #10 tabs 06/30/24 [Rx Confirmed 07/17/24] levothyroxine 200 mcg tablet 200 mcg PO QDAY #90 tabs 06/30/24 [Rx Confirmed 07/17/24] liothyronine 25 mcg tablet 25 mcg PO QDAY 30 days #30 tabs 06/30/24 [Rx Confirmed 07/17/24] loperamide 2 mg capsule 2 mg PO Q4H PRN loose stool #30 caps 06/30/24 [Rx Confirmed 07/17/24] benztropine 0.5 mg tablet 0.5 mg PO TID 07/15/24 [History Confirmed 07/17/24] levothyroxine 25 mcg tablet 25 mcg PO QDAY #90 tabs 07/15/24 [Rx Confirmed 07/17/24] ondansetron HCl 8 mg tablet 4 mg (1/2 x 8 mg) PO QID PRN nausea and vomiting #90 tabs 07/15/24 [Rx Confirmed 07/17/24] clonazepam 0.5 mg tablet 0.5 mg PO TID PRN anxiety 07/17/24 [History Confirmed 07/17/24] quetiapine 100 mg tablet (Seroquel) 100 mg PO BEDTIME 07/17/24 [History Confirmed 07/17/24] Opioid Naive vs. Tolerant Does Patient Take Opioids?: Yes Is Patient Opioid Naive?: No What is Opioid Naive?: *Opioid Naive implies the patient is not already taking opioids or not chronically receiving opioids on a daily basis. *PRN dosing is not "usually" associated with tolerance. *Patients are at higher risk of over-sedation and aspiration. Is Patient Opioid Tolerant?: No What is Opioid Tolerant?: *Opioid Tolerance implies less than the expected response to an opioid. *Acquired tolerance is defined by the patient taking 60mg of oral morphine daily (or equianalgesic dose of another opioid) for 1 week or more. *Often associated with chronic pain. *May take more than usual dose to achieve desired pain control. Review of Systems Constitutional: Reports Fever Head: Reports Normocephalic Eyes: Reports No symptoms Ears: Reports No symptoms Nose: Reports No symptoms Mouth: Reports No symptoms Throat: Reports No symptoms Cardiovascular: Reports No symptoms Respiratory: Reports No symptoms Gastrointestinal: Reports Nausea and Diarrhea Genitourinary: Reports Dysuria and Other (vaginal pain/swelling/irritation) Musculoskeletal: Reports No symptoms Endocrine: Reports No symptoms Hematology: Reports No symptoms Immunology: Reports No symptoms Neurological: Reports No symptoms Psychiatric: Reports No symptoms Physical examination Most Recent Vital Signs: Most Recent Vital Signs Temperature 97.3 F L 07/17/24 18:00 Temperature Source Temporal Artery Scan 07/17/24 18:00 Temperature Source Oral 07/17/24 13:55 Pulse Rate 73 07/17/24 18:00 Respiratory Rate 16 07/17/24 18:00 Blood Pressure 154/80 H 07/17/24 18:00 Blood Pressure Mean 104 07/17/24 18:00 Blood Pressure Left Arm 154/80 07/17/24 17:27 Blood Pressure Location Right Arm 07/17/24 18:00 Blood Pressure Position Sitting 07/17/24 17:27 O2 Sat by Pulse Oximetry 100 07/17/24 18:00 Oxygen Delivery Method Room Air 07/17/24 18:00 Height 5 ft 2 in 07/17/24 17:27 Weight 61.8 kg 07/17/24 17:27 Telemetry Type Remote Telemetry 07/17/24 17:35 Telemetry Monitoring Started 07/17/24 17:35 Irregular Telemetry Rate (Approximate) 80-90 BPM 07/17/24 17:35 Telemetry Heart Rate 80 07/17/24 17:35 EKG TN Interval 0.08 L 07/17/24 17:35 EKG QRS Interval 0.05 L 07/17/24 17:35 Telemetry Strip Reading sr narrow pr and qrs interval 07/17/24 17:35 Appearance: Positive No Apparent Distress and Alert and Oriented x3 Skin: Positive Warm and Good Turgor HEENT: Positive Normocephalic and PERRLA Neck: Positive Supple and Midline Trachea Chest/Lungs: Positive Symmetrical With Equal Breath Sounds, Clear to Auscultation Bilaterally and Good Air Movement all 4 Lung [place] Heart: Positive RRR and Pulses Normal GI/: Positive Soft, Nontender, Bowel Sounds Normal and No Distention Musculoskeletal: Positive Not Examined Extremities: Positive Edema (trace BLE), Intact Peripheral Pulses, Stable Joints Without Laxity and Good ROM in All Joints Neurological: Positive Sensation Intact, Motor intact, Alert, Oriented and Muscle Strength 5/5 in Upper and Lower Extremities Bilaterally Labs This Visit Labs This Visit: Labs This Visit 07/17/24 07/17/24 14:30 14:53 WBC 4.81 RBC 2.92 L Hgb 9.1 L Hct 29.4 L MCV 100.7 H MCH 31.2 H MCHC 31.0 L RDW Coeff of Niki 14.0 Plt Count 133 L Immature Gran % (Auto) 0.2 Neut % (Auto) 42.3 Lymph % (Auto) 46.8 [facility] % (Auto) 8.9 Eos % (Auto) 1.0 Baso % (Auto) 0.8 Neut # (Auto) 2.0 Lymph # (Auto) 2.3 [facility] # (Auto) 0.4 Eos # (Auto) 0.1 Baso # (Auto) 0.0 Immature Gran # (Auto) 0.0 Sodium 138.7 Potassium 3.19 L Chloride 114.3 H Carbon Dioxide 21.0 L Anion Gap 6.59 BUN 10.8 Creatinine 0.86 Estimated GFR (MDRD) 65.00 BUN/Creatinine Ratio 12.55 Glucose 116.9 H Calcium 6.96 L Total Bilirubin 0.37 AST 27.6 ALT 16.8 Alkaline Phosphatase 96.9 Total Protein 4.06 L Albumin 1.65 L Globulin 2.41 Albumin/Globulin Ratio 0.68 Procalcitonin 0.19 H SARS CoV-2 RNA Rapid LONNY Negative Review Statement Review Statement: I have independently reviewed and interpreted the labs/EKGs/imaging that were ordered by the ER provider. I have reviewed all outside records that are available currently in our EMR including imaging/notes/labs from previous visits. Plan Plan: 1. UTI d/t pseudomonas - cipro ordered based on sensitivity 2. C diff - vancomycin PO qid x 10 days 3. Hypocalcemia - 2G calcium ordered, repeat in am 4. Hypokalemia - mild, replacement ordered 5. Anemia - chronic, stable 6. Hypothyroidism - chronic stable 7. Anxiety/Depression/Bipolar - the only psych med being prescribed and filled is seroquel, patient reporting old meds she has not filled since March DVT Prophylaxis: Ambulation Time Spent: Greater than 80 minutes spent with patient, 50% of the time spent with this patient was devoted to counseling and coordination of care. [facility] Plannin minutes spent discussing advance care planning. Disposition: Admit to: Med/Surg Observation Full Code Discussed Plan of Care with Dr. Socorro Sargent. Medications Medication Orders: Medications Ordered Category Date Time Status Acetaminophen [Tylenol] Meds 07/17/24 16:22 Active 650 mg PO Q4H PRN Albuterol Sulfate [Ventolin Hfa] Meds 07/17/24 21:00 Ordered 2 puff IH QID Calcium Gluc in NaCl, Iso-Osm [Calcium Gluconate 1,000 Meds 07/17/24 18:35 Ordered mg/100 ml Ns] 2,000 mg in 200 ml IV ONCE Ciprofloxacin/D5w [Cipro 400 mg/200 ml D5w] Meds 07/17/24 21:00 Active 400 mg in 200 ml IV Q12HR Furosemide [Lasix Tab] Meds 07/18/24 09:00 Ordered 20 mg PO QAM Ipratropium/Albuterol Neb [Duoneb] Meds 07/17/24 18:36 Ordered 3 ml NEB QID PRN Levothyroxine Sodium [Synthroid] Meds 07/17/24 19:00 Ordered 200 mcg PO QDAY Levothyroxine Sodium [Synthroid] Meds 07/17/24 19:00 Ordered 25 mcg PO QDAY Ondansetron HCl [Zofran Tab] Meds 07/17/24 18:36 Ordered 4 mg PO QID PRN Oxycodone-Acetaminophen [Percocet 10-325] Meds 07/17/24 18:36 Ordered 1 tab PO Q6H PRN Pantoprazole Sodium [Protonix] Meds 07/18/24 06:00 Ordered 40 mg PO QDAC2 Quetiapine Fumarate [Seroquel] Meds 07/17/24 21:00 Ordered 100 mg PO BEDTIME Vancomycin [Firvanq] Meds 07/17/24 18:00 Active 125 mg PO Q6HR cholecalciferol (vitamin D3) Meds 07/17/24 18:45 Ordered 1,250 mcg PO QWEEK liothyronine Meds 07/17/24 18:45 Ordered 25 mcg PO QDAY
[2024-07-17] MEDS: SODIUM CHLORIDE IV ONE (20:46)
[2024-07-17] MEDS: CALCIUM GLUCONATE IV ONE (20:46)
[2024-07-17] MEDS: FLORASTOR PO SCH (20:49)
[2024-07-17] MEDS: PERCOCET 10-325 PO PRN (20:49)
[2024-07-17] MEDS: SYNTHROID PO SCH (20:50)
[2024-07-17] MEDS: POTASSIUM CHL 10% ORAL SOL PO ONE (20:51)
[2024-07-17] MEDS: CALCIUM GLUCONATE 1,000 MG/100 ML NS 1,000 MG/100 ML BAG IV ONE (20:52)
[2024-07-17] MEDS: SEROQUEL PO SCH (20:53)
[2024-07-17] MEDS: CIPRO 400 MG/200 ML D5W 400 MG/200 ML BAG IV SCH (22:30)
[2024-07-17] MEDS: VENTOLIN HFA IH SCH (23:53)
[2024-07-18] MEDS: LASIX TAB PO SCH (05:39)
[2024-07-18] MEDS: PROTONIX PO SCH (05:39)
[2024-07-18] MEDS: SYNTHROID PO SCH (05:39)
[2024-07-18 06:04] LABS: BASOPHILS % (AUTO) 0.7 % (0.0-3.0); EOSINOPHILS # (AUTO) 0.1 K/ul (0.0-0.7); EOSINOPHILS % (AUTO) 1.8 % (0.0-7.0); HEMATOCRIT 32.1 % (37.0-47.0); IMMATURE GRANULOCYTE % (AUTO) 0.2 % (0.0-5.0); LYMPHOCYTES # (AUTO) 3.7 K/uL (0.60-3.4); LYMPHOCYTES % (AUTO) 65.6 (10.0-50.0); MEAN CORPUSCULAR HEMOGLOBIN 31.3 pg (27.0-31.0); MEAN CORPUSCULAR HGB CONC 31.2 (31.8-35.4); MEAN CORPUSCULAR VOLUME 100.6 fl (81.0-99.0); MONOCYTES # (AUTO) 0.4 K/uL (0.4-2.0); MONOCYTES % (AUTO) 7.5 (0-10); NEUTROPHILS # (AUTO) 1.4 K/ul (2.0-6.9); NEUTROPHILS % (AUTO) 24.2 % (42.2-75.2); PLATELET COUNT 145 10^3/uL (140-440); RDW COEFFICIENT OF VARIATION 14.1 % (11.6-14.8); RED BLOOD COUNT 3.19 10^6/ul (4.20-5.40); WHITE BLOOD COUNT 5.61 K/ul (4.6-10.2)
[2024-07-18 06:27] LABS: ALANINE AMINOTRANSFERASE 18.4 U/L (0-35); ALBUMIN 1.7 g/dL (3.5-5.0); ALKALINE PHOSPHATASE 106.4 U/L (53-141); ASPARTATE AMINO TRANSFERASE 30.7 U/L (14-36); BILIRUBIN,TOTAL 0.44 mg/dL (0.2-1.3); BLOOD UREA NITROGEN 10.4 mg/dL (7-17); CALCIUM 7.42 mg/dL (8.4-10.2); CARBON DIOXIDE 22.1 mmol/L (22-30.0); CHLORIDE 114.3 mmol/L (98-107); CREATININE 0.83 mg/dL (0.60-1.30); GLUCOSE 73.7 mg/dL (74-106); POTASSIUM 4.13 mmol/L (3.5-5.1); SODIUM 139.4 mmol/L (134.5-145); TOTAL PROTEIN 4.23 g/dL (6.3-8.2)
[2024-07-18] MEDS: ZOFRAN TAB PO PRN (08:09)
[2024-07-18] MEDS ORDERED: NON-FORMULARY MEDICATION (Cholecalciferol (Vitamin D3) 1,250 mcg (50,000 unit) capsule) PO SCH (09:00)
[2024-07-18 09:53] VITALS: BP 123/80; PULSE 67; RESP 18; TEMP 96.9
[2024-07-18] MEDS: DRISDOL PO SCH (10:30)
[2024-07-18] MEDS: LIOTHYRONINE 25 MCG PO SCH (11:21)
--- NOTE | 2024-07-18 11:36 | DCSUM ---
Admission Date Admission Date: 07/17/24 Discharge Date Discharge Date: 07/18/24 Admission Diagnosis Admission Diagnosis: 1. UTI d/t pseudomonas 2. C diff 3. Hypocalcemia 4. Hypokalemia Discharge Diagnosis Discharge Diagnosis: 1. UTI d/t pseudomonas - Outpatient IV antibiotics ordered 2. C diff - vancomycin PO qid x 10 days 3. Hypocalcemia - At baseline level 4. Hypokalemia - Replacement given Hospital Provider Hospital Provider: JOSE ROBERTS, [facility] Primary Care Physician Primary Care Physician: DIOR CARRENO MD Summary of History and Physical Summary of History and Physical: 68 yo female with lengthy pmh presented to the ER after discovering she has UTI d/t pseudomonas and Cdiff yesterday from local PCP. States that she has had vaginal pain and swelling since she was discharged from [facility] at this facility that has persisted. Also has had diarrhea and nausea. States she was checked for cdiff during her acute stay prior to [facility] and it was negative. No concerns for cdiff present during stay. 2/6 UA was collected at PCP office. Growth of pseudomonas was present. Patient has difficulty swallowing pills and medications appropriate for treatment were either too expensive or unavailable in liquid form. PCP planned for home health to administer IV antibiotics but patient did not have PICC line and refused to have one placed. States she has had low grade fever intermittently with the other symptoms discussed. Admitted to med/surg. Hospital Course Subjective: During stay, patient received cipro 400 mg Q12H for treatment of UTI in setting of pseudomonas. Patient refuses to pay $80 for oral liquid cipro and will not take pills unless they can be crushed in applesauce. Based on sensitivity, options are limited. Offered daily IV outpatient antibiotics and agreeable. Orders written for levaquin 750 mg IVPB daily for 2 days to complete course of therapy. Orders given for vancomycin liquid form 125 mg Q6H PO for treatment of Cdiff. Told nurses overnight that she had already completed medication for Cdiff and refused 2 doses. This am discussed extensively with her that she has not been prescribed medication for this prior to admission and this is the appropriate course of treatment. Patient states she has no recollection of this and she absolutely did not refuse her medications "unless she was sleeping and talking out of her head". Also continues to report she is taking cogentin and klonopin and neither medication as been filled for nearly 6 months. Incidental finding of low calcium. Replacement given and returned to baseline level. No s/sx present. Medically stable for discharge. Vital signs stable. Labs stable. Appearance: Pleasant, No Apparent Distress and Alert HEENT: MMM, Supple and No JVD CVS: No Murmur, No Rubs and No Gallop Abdomen: Soft, Non-Tender and No Distention Respiratory: No Dyspnea Extremities: No Edema Vital Signs: Most Recent Vital Signs Temperature 96.9 F L 07/18/24 09:52 Temperature Source Temporal Artery Scan 07/18/24 09:52 Temperature Source Oral 07/17/24 13:55 Pulse Rate 67 07/18/24 09:52 Respiratory Rate 18 07/18/24 09:52 Blood Pressure 123/80 07/18/24 09:52 Blood Pressure Mean 94 07/18/24 09:52 Blood Pressure Left Arm 154/80 07/17/24 17:27 Blood Pressure Location Left Arm 07/18/24 09:52 Blood Pressure Position Supine 07/18/24 09:52 O2 Sat by Pulse Oximetry 99 07/18/24 09:52 Oxygen Delivery Method Room Air 07/18/24 11:00 Height 5 ft 2 in 07/17/24 17:27 Weight 61.8 kg 07/17/24 17:27 Telemetry Type Remote Telemetry 07/18/24 07:00 Telemetry Monitoring Continues 07/18/24 07:00 Irregular Telemetry Rate (Approximate) 60-70 BPM 07/18/24 07:00 Telemetry Heart Rate 61 07/18/24 07:00 EKG [place] Interval 0.12 07/18/24 07:00 EKG QRS Interval 0.04 L 07/18/24 07:00 Telemetry Strip Reading sr narrow QRS 07/18/24 07:00 Lab Results Last 24 Hours: 07/18/24 07/17/24 07/17/24 05:46 14:53 14:30 WBC 5.61 4.81 RBC 3.19 L 2.92 L Hgb 10.0 L 9.1 L Hct 32.1 L 29.4 L MCV 100.6 H 100.7 H MCH 31.3 H 31.2 H MCHC 31.2 L 31.0 L RDW Coeff of Niki 14.1 14.0 Plt Count 145 133 L Immature Gran % (Auto) 0.2 0.2 Neut % (Auto) 24.2 L 42.3 Lymph % (Auto) 65.6 H 46.8 [place] % (Auto) 7.5 8.9 Eos % (Auto) 1.8 1.0 Baso % (Auto) 0.7 0.8 Neut # (Auto) 1.4 L 2.0 Lymph # (Auto) 3.7 H 2.3 [place] # (Auto) 0.4 0.4 Eos # (Auto) 0.1 0.1 Baso # (Auto) 0.0 0.0 Immature Gran # (Auto) 0.0 0.0 Sodium 139.4 138.7 Potassium 4.13 3.19 L Chloride 114.3 H 114.3 H Carbon Dioxide 22.1 21.0 L Anion Gap 7.13 6.59 BUN 10.4 10.8 Creatinine 0.83 0.86 Estimated GFR (MDRD) 68.00 65.00 BUN/Creatinine Ratio 12.53 12.55 Glucose 73.7 L 116.9 H Calcium 7.42 L 6.96 L Total Bilirubin 0.44 0.37 AST 30.7 27.6 ALT 18.4 16.8 Alkaline Phosphatase 106.4 96.9 Total Protein 4.23 L 4.06 L Albumin 1.70 L 1.65 L Globulin 2.53 2.41 Albumin/Globulin Ratio 0.67 0.68 Procalcitonin 0.19 H SARS CoV-2 RNA Rapid LONNY Negative Discharge Instructions Discharge Planning: Discharge Planning > 40 minutes If patient is discharged with left ventricular systolic dysfunction: no Discharged with a beta gabriel? [] If no, why not? [] Discharged with an carla/arb? [] If no, why not? [] Diagnosis: UTI in setting of Pseudomonas, C. Diff Diet: Regular Activity: as tolerated Medications: * Vancomycin 125 mg every 6 hours by mouth for total of 10 days, you have received 2 doses while in the hospital leaving you to take 36 more doses for course of therapy to be completed. * You have been prescribed IV levaquin for the treatment of your UTI. You must return to the hospital tomorrow 07/19/24 and 07/20/24 for daily doses to complete your course of treatment. * It is recommended that you take daily probiotics or eat yogurt to put good bacteria back into your colon for further prevention of Cdiff. Follow-up with your PCP upon completion of your antibiotics. Discharge Medications: Medications at Discharge (Home Meds & RX) needle (disp) 25 gauge 25 gauge x 5/8" (BD PrecisionGlide Non-Sterile) #12 ea 10/13/18 blood sugar diagnostic (OneTouch Verio test strips) #10 ea 03/22/20 blood-glucose meter (OneTouch Verio IQ Meter kit) #1 ea 03/22/20 lancets 33 gauge (OneTouch Delica Plus Lancet) #100 ea 03/22/20 oxycodone-acetaminophen 10 mg-325 mg tablet (Percocet) 1 tab PO Q6H PRN pain #120 tabs 03/22/20 albuterol sulfate 90 mcg/actuation aerosol inhaler 2 puff inhalation QID #1 ea 07/25/22 ipratropium 0.5 mg-albuterol 3 mg (2.5 mg base)/3 mL nebulization soln 3 ml inhalation QID PRN bronchitis #180 mL 04/17/23 cholecalciferol (vitamin D3) 1,250 mcg (50,000 unit) capsule 1,250 mcg PO QWEEK #8 caps 07/28/23 pantoprazole 40 mg tablet,delayed release 40 mg PO DIRECTED #120 tabs 03/25/24 furosemide 20 mg tablet 20 mg PO QAM #10 tabs 06/30/24 levothyroxine 200 mcg tablet 200 mcg PO QDAY #90 tabs 06/30/24 liothyronine 25 mcg tablet 25 mcg PO QDAY 30 days #30 tabs 06/30/24 loperamide 2 mg capsule 2 mg PO Q4H PRN loose stool #30 caps 06/30/24 levothyroxine 25 mcg tablet 25 mcg PO QDAY #90 tabs 07/15/24 ondansetron HCl 8 mg tablet 4 mg (1/2 x 8 mg) PO QID PRN nausea and vomiting #90 tabs 07/15/24 quetiapine 100 mg tablet (Seroquel) 100 mg PO BEDTIME 07/17/24 vancomycin 125 mg PO Q6HR 10 days #10 ea 07/18/24 - sent home bottle from hospital levaquin 750 mg IVPB Q24H x 2 days 07/18/24 Discharge Plan Discharge Discharge Orders: Discharge Patient (ONCE); Ordered 07/18/24 Ordered By: JAGDISH MARQUEZ Activity Restrictions/Additional Instructions: Diagnosis: UTI in setting of Pseudomonas, C. Diff Diet: Regular Activity: as tolerated Medications: * Vancomycin 125 mg every 6 hours by mouth for total of 10 days, you have received 2 doses while in the hospital leaving you to take 36 more doses for course of therapy to be completed. * You have been prescribed IV levaquin for the treatment of your UTI. You must return to the hospital tomorrow 07/19/24 and 07/20/24 for daily doses to complete your course of treatment. * It is recommended that you take daily probiotics or eat yogurt to put good bacteria back into your colon for further prevention of Cdiff. Follow-up with your PCP upon completion of your antibiotics. Instructions: Urinary Tract Infection in Women (GEN), C. Diff (Clostridioides Difficile) Infection (GEN) Patient Disposition: HOME SELF-CARE Prescriptions: New vancomycin 1,000 mg Recon Soln 125 mg PO Q6HR 10 Days Qty: 10 0RF Continued (DME) BD PrecisionGlide Non-Sterile 1 EACH needle 1 ea [facility] MONTHLY 12 Days Qty: 12 1RF Rx Instructions: 23 G 1 inch needle with 3 cc syringe. (DME) blood-glucose meter [OneTouch Verio IQ Meter] Kit See Rx Instructions .ROUTE .MEDSUPPLY Qty: 1 0RF Rx Instructions: once daily fasting. (DME) OneTouch Verio test strips Strip See Rx Instructions .ROUTE .MEDSUPPLY Qty: 10 0RF Rx Instructions: As directed (DME) lancets [OneTouch Delica Plus Lancet] 33 gauge misc See Rx Instructions .ROUTE .MEDSUPPLY Qty: 100 12RF Rx Instructions: once daily fasting. cholecalciferol (vitamin D3) 1,250 mcg (50,000 unit) capsule 1,250 mcg PO QWEEK Qty: 8 1RF quetiapine [Seroquel] 100 mg tablet 100 mg PO BEDTIME albuterol sulfate 90 mcg/actuation Hfa Aerosol Inhaler 2 puff INHALATION QID Qty: 1 0RF ipratropium-albuterol 0.5 mg-3 mg(2.5 mg base)/3 mL solution for nebulization 3 ml inhalation QID PRN (Reason: bronchitis) Qty: 180 0RF liothyronine 25 mcg tablet 25 mcg PO QDAY 30 Days Qty: 30 0RF levothyroxine 200 mcg tablet 200 mcg PO QDAY Qty: 90 0RF Rx Instructions: 03/18/24 Dose 225 mcg 200mcg+25mcg. TSH 53. furosemide 20 mg tablet 20 mg PO QAM Qty: 10 0RF loperamide 2 mg capsule 2 mg PO Q4H PRN (Reason: loose stool) Qty: 30 0RF Rx Instructions: administer after each loose stool until symptoms controlled; do not exceed 8 mg per 24 hrs oxycodone-acetaminophen [Percocet] 10-325 mg tablet 1 tab PO Q6H PRN (Reason: pain) Qty: 120 0RF pantoprazole 40 mg tablet,delayed release (DR/EC) 40 mg PO DIRECTED Qty: 120 1RF Rx Instructions: 2x daily x 2 weeks then daily. levothyroxine 25 mcg tablet 25 mcg PO QDAY Qty: 90 0RF Rx Instructions: take with 200 mcg to equal 225 mcg 07/15/24. ondansetron HCl 8 mg tablet 4 mg PO QID PRN (Reason: nausea and vomiting) Qty: 90 1RF Discontinued clonazepam 0.5 mg tablet 0.5 mg PO TID PRN (Reason: anxiety) Patient Comments: [NO ORIGINAL SIG] benztropine 0.5 mg tablet 0.5 mg PO TID Did you review [place] [employer] for ALL controlled substances?: No Discussed opioids are addictive and Narcan is available by prescription or from pharmacy.: No Condition: Good
[2024-07-18] MEDS ORDERED: FIRVANQ PO SCH (12:00)
== END 2024-07-18 13:30 | disposition home or self-care (01) ==
LOC: MEDSURG B 13:18 → ED 13:18 → MEDSURG B 17:18
PROVIDERS: ADMIT Hospitalist; ATTEND Nurse Practitioner Family
DX: F31.9 Bipolar disorder, unspecified; E03.9 Hypothyroidism, unspecified; Z20.822 Contact with and (suspected) exposure to COVID-19; E83.51 Hypocalcemia; B96.5 Pseudomonas (aeruginosa) (mallei) (pseudomallei) as the cause of diseases classified elsewhere; Z51.81 Encounter for therapeutic drug level monitoring; A04.72 Enterocolitis due to Clostridium difficile, not specified as recurrent; N39.0 Urinary tract infection, site not specified; Z79.899 Other long term (current) drug therapy; D64.9 Anemia, unspecified; E87.6 Hypokalemia; F41.9 Anxiety disorder, unspecified